=== PATIENT | female | born 1950 | race Hispanic/Latino ===

== ENCOUNTER 2019-05-02 10:29 | Inpatient (IN) | payer BC, MEDICARE ==
[2019-05-02 11:24] LABS: Hematocrit 34.6 % (30.3-42.9); Hemoglobin 12.3 gm/dl (10.1-14.3); Mean Corpuscular HGB Conc 36 % (30-34); Mean Corpuscular Volume 88 fl (79-97); Platelet Count 180 K/mm3 (140-440); Red Blood Count 3.94 M/mm3 (3.65-5.03); Red Cell Distribution Width 13.2 % (13.2-15.2)
--- NOTE | 2019-05-02 11:28 | XRay Report ---
AP CHEST: HISTORY: chest pain AP view of the chest demonstrates a normal mediastinal and cardiac contour with clear lungs and normal bony and soft tissue structures. IMPRESSION: Unremarkable AP chest.
[2019-05-02 11:39] LABS: Alanine Aminotransferase 55 units/L (7-56); Albumin 4.1 g/dL (3.9-5); BUN/Creatinine Ratio 13; Blood Urea Nitrogen 12 mg/dL (7-17); Calcium 8.6 mg/dL (8.4-10.2); Hemolysis Index 9
[2019-05-02 12:35] LABS: Total Cells Counted 100
[2019-05-02 12:36] LABS: BUN/Creatinine Ratio 15; Blood Urea Nitrogen 12 mg/dL (7-17); Calcium 8.5 mg/dL (8.4-10.2); Hemolysis Index 13
[2019-05-02 12:37] LABS: Basophils % (Manual) 0 % (0.0-1.8); Platelet Estimate Consistent w Auto; RBC Morphology Normal
--- NOTE | 2019-05-02 12:51 | Emergency Department Report ---
ED General Adult HPI - General Chief complaint: Chest Pain Stated complaint: ABD/CHEST PAIN Time Seen by Provider: 05/02/19 11:13 Source: EMS Mode of arrival: Stretcher Limitations: No Limitations - History of Present Illness Initial comments: The patient presents to the emergency department with a chief complaint of diarrhea 1 week. Patient states she was seen by her PA yesterday and started on antibiotic for her diarrhea. Patient also complains of chest pain 2 days that she describes as dull in nature without radiation. -: Gradual Location: chest Radiation: non-radiation Improves with: none Worsens with: none Associated Symptoms: denies other symptoms Treatments Prior to Arrival: none - Related Data Home Medications Medication Instructions Recorded Confirmed Last Taken ALPRAZolam [Xanax TAB] 2 mg PO BID PRN 05/02/19 05/02/19 Unknown Clopidogrel [Plavix] 75 mg PO QDAY 05/02/19 05/02/19 Unknown Diphenoxylate/Atropine [Lomotil] 1 tab PO QID PRN 05/02/19 05/02/[address] [DepaKOTE DR] 250 mg PO BID 05/02/19 05/02/19 Unknown Escitalopram Oxalate [Lexapro] 10 mg PO QDAY 05/02/19 05/02/19 Unknown Fenofibric Acid (Choline) 135 mg PO QDAY 05/02/19 05/02/19 Unknown [Fenofibric Acid] Lisinopril/Hydrochlorothiazide 1 tab PO QDAY 05/02/19 05/02/19 Unknown [Zestoretic 20-25 mg] Metoprolol [Lopressor TAB] 50 mg PO BID 05/02/19 05/02/19 Unknown [place]-3 Acid Ethyl Esters [Triklo] 2 cap PO BID 05/02/19 05/02/19 Unknown Ondansetron [Zofran Odt] 4 mg PO Q6HR PRN 05/02/19 05/02/19 Unknown Pravastatin [Pravachol] 40 mg PO QHS 05/02/19 05/02/19 Unknown Silver Sulfadiazine [Ssd] 1 applic TP BID 05/02/19 05/02/19 Unknown Sulfamethoxazole/Trimethoprim 1 each PO BID 05/02/19 05/02/19 Unknown [Bactrim DS TAB] Zolpidem [Ambien] 10 mg PO QHS PRN 05/02/19 05/02/19 Unknown traMADol [Ultram] 50 mg PO Q6HR PRN 05/02/19 05/02/19 Unknown Allergies Allergy/AdvReac Type Severity Reaction Status Date / Time No Known Allergies Allergy Verified 10/20/15 00:26 ED Review of Systems ROS: Stated complaint: ABD/CHEST PAIN Other details as noted in HPI Comment: All other systems reviewed and negative (history of) Constitutional: denies: chills, fever Eyes: denies: eye pain, eye discharge, vision change ENT: denies: ear pain, throat pain Respiratory: denies: cough, shortness of breath, wheezing Cardiovascular: chest pain. denies: palpitations Endocrine: no symptoms reported Gastrointestinal: denies: abdominal pain, nausea, diarrhea Genitourinary: denies: urgency, dysuria, discharge Musculoskeletal: denies: back pain, joint swelling, arthralgia Skin: denies: rash, lesions Neurological: denies: headache, weakness, paresthesias Psychiatric: denies: anxiety, depression Hematological/Lymphatic: denies: easy bleeding, easy bruising ED Past Medical Hx - Past Medical History Previous Medical History?: Yes Hx Hypertension: Yes Hx Heart Attack/AMI: Yes (5 stents) Hx Psychiatric Treatment: Yes (Depression, Anxiety) Additional medical history: CAD - Surgical History Past Surgical History?: Yes Hx Coronary Stent: Yes (5 stents) - Social History Smoking Status: Former Smoker Substance Use Type: Alcohol - Medications Home Medications: Home Medications Medication Instructions Recorded Confirmed Last Taken Type ALPRAZolam [Xanax TAB] 2 mg PO BID PRN 05/02/19 05/02/19 Unknown History Clopidogrel [Plavix] 75 mg PO QDAY 05/02/19 05/02/19 Unknown History Diphenoxylate/Atropine [Lomotil] 1 tab PO QID PRN 05/02/19 05/02/19 Unknown History Divalproex [Luciano MADISON] 250 mg PO BID 05/02/19 05/02/19 Unknown History Escitalopram Oxalate [Lexapro] 10 mg PO QDAY 05/02/19 05/02/19 Unknown History Fenofibric Acid (Choline) 135 mg PO QDAY 05/02/19 05/02/19 Unknown History [Fenofibric Acid] Lisinopril/Hydrochlorothiazide 1 tab PO QDAY 05/02/19 05/02/19 Unknown History [Zestoretic 20-25 mg] Metoprolol [Lopressor TAB] 50 mg PO BID 05/02/19 05/02/19 Unknown History [place]-3 Acid Ethyl Esters [Triklo] 2 cap PO BID 05/02/19 05/02/19 Unknown History Ondansetron [Zofran Odt] 4 mg PO Q6HR PRN 05/02/19 05/02/19 Unknown History Pravastatin [Pravachol] 40 mg PO QHS 05/02/19 05/02/19 Unknown History Silver Sulfadiazine [Ssd] 1 applic TP BID 05/02/19 05/02/19 Unknown History Sulfamethoxazole/Trimethoprim 1 each PO BID 05/02/19 05/02/19 Unknown History [Bactrim DS TAB] Zolpidem [Ambien] 10 mg PO QHS PRN 05/02/19 05/02/19 Unknown History traMADol [Ultram] 50 mg PO Q6HR PRN 05/02/19 05/02/19 Unknown History ED Physical Exam - General Limitations: No Limitations General appearance: alert, in no apparent distress - Head Head exam: Present: atraumatic, normocephalic - Eye Eye exam: Present: normal appearance, PERRL, EOMI - ENT ENT exam: Present: mucous membranes dry - Neck Neck exam: Present: normal inspection - Respiratory Respiratory exam: Present: normal lung sounds bilaterally. Absent: respiratory distress, wheezes, rales - Cardiovascular Cardiovascular Exam: Present: regular rate, normal rhythm. Absent: systolic murmur, diastolic murmur, rubs, gallop - GI/Abdominal GI/Abdominal exam: Present: soft, normal bowel sounds. Absent: distended, tenderness - Extremities Exam Extremities exam: Present: normal inspection - Back Exam Back exam: Present: normal inspection - Neurological Exam Neurological exam: Present: alert, oriented X3, CN II-XII intact. Absent: motor sensory deficit - Psychiatric Psychiatric exam: Present: normal affect, normal mood - Skin Skin exam: Present: warm, dry, intact, normal color. Absent: rash ED Course Vital Signs 05/02/19 05/02/19 05/02/19 10:49 11:00 11:16 Pulse Rate 71 64 69 Respiratory 12 16 12 Rate Blood Pressure 115/64 115/64 123/69 O2 Sat by Pulse 97 99 Oximetry 05/02/19 05/02/19 05/02/19 11:30 11:45 12:00 Pulse Rate 64 65 66 Respiratory 19 16 16 Rate Blood Pressure 118/65 124/70 130/78 O2 Sat by Pulse 100 100 100 Oximetry 05/02/19 05/02/19 05/02/19 12:15 12:30 12:45 Pulse Rate 65 63 75 Respiratory 10 L 12 14 Rate Blood Pressure 136/75 142/80 142/80 O2 Sat by Pulse 100 100 100 Oximetry 05/02/19 05/02/19 05/02/19 13:00 13:15 13:30 Pulse Rate 64 65 66 Respiratory 15 16 12 Rate Blood Pressure 154/77 150/79 135/74 O2 Sat by Pulse 100 100 100 Oximetry 05/02/19 05/02/19 05/02/19 13:45 14:00 14:15 Pulse Rate 72 70 71 Respiratory 18 12 13 Rate Blood Pressure 135/74 146/77 147/71 O2 Sat by Pulse 100 100 100 Oximetry 05/02/19 05/02/19 05/02/19 14:30 14:45 15:01 Pulse Rate 68 60 65 Respiratory 14 11 L 16 Rate Blood Pressure 145/80 133/82 127/72 O2 Sat by Pulse 100 100 100 Oximetry 05/02/19 05/02/19 05/02/19 15:15 15:30 15:53 Pulse Rate 62 69 69 Respiratory 13 15 Rate Blood Pressure 127/72 120/78 120/78 O2 Sat by Pulse 100 100 Oximetry 05/02/19 05/02/19 05/02/19 16:01 16:15 16:30 Pulse Rate 70 85 69 Respiratory 14 13 15 Rate Blood Pressure 120/78 120/78 113/68 O2 Sat by Pulse 100 100 100 Oximetry 05/02/19 05/02/19 05/02/19 16:45 17:00 17:15 Pulse Rate 67 71 72 Respiratory 13 13 13 Rate Blood Pressure 120/78 124/67 124/67 O2 Sat by Pulse 100 100 100 Oximetry 05/02/19 05/02/19 05/02/19 17:30 17:45 18:00 Pulse Rate 72 75 74 Respiratory 15 17 10 L Rate Blood Pressure 147/78 143/77 143/77 O2 Sat by Pulse 100 100 100 Oximetry ED Medical Decision Making - Lab Data Result diagrams: 05/02/19 11:03 05/02/19 12:13 Lab Results 05/02/19 05/02/19 05/02/19 Range/Units 11:03 11:03 12:13 WBC 2.7 L (4.5-11.0) K/mm3 RBC 3.94 (3.65-5.03) M/mm3 Hgb 12.3 (10.1-14.3) gm/dl Hct 34.6 (30.3-42.9) % MCV 88 (79-97) fl MCH 31 (28-32) pg MCHC 36 H (30-34) % RDW 13.2 (13.2-15.2) % Plt Count 180 (140-440) K/mm3 Hart % (Auto) Dinkey Driver Add Manual Diff Complete Total Counted 100 Seg Neuts % (Manual) 49.0 (40.0-70.0) % Band Neutrophils % 0 % Lymphocytes % (Manual) 42.0 H (13.4-35.0) % Reactive Lymphs % (Man) 0 % Monocytes % (Manual) 7.0 (0.0-7.3) % Eosinophils % (Manual) 1.0 (0.0-4.3) % Basophils % (Manual) 0 (0.0-1.8) % Metamyelocytes % 0 % Myelocytes % 1.0 % Promyelocytes % 0 % Blast Cells % 0 % Nucleated RBC % Not Reportable Seg Neutrophils # Man 1.3 L (1.8-7.7) K/mm3 Band Neutrophils # 0.0 K/mm3 Lymphocytes # (Manual) 1.1 L (1.2-5.4) K/mm3 Abs React Lymphs (Man) 0.0 K/mm3 Monocytes # (Manual) 0.2 (0.0-0.8) K/mm3 Eosinophils # (Manual) 0.0 (0.0-0.4) K/mm3 Basophils # (Manual) 0.0 (0.0-0.1) K/mm3 Metamyelocytes # 0.0 K/mm3 Myelocytes # 0.0 K/mm3 Promyelocytes # 0.0 K/mm3 Blast Cells # 0.0 K/mm3 WBC Morphology Not Reportable Hypersegmented Neuts Not Reportable Hyposegmented Neuts Not Reportable Hypogranular Neuts Not Reportable Smudge Cells Not Reportable Toxic Granulation Not Reportable Toxic Vacuolation Not Reportable Dohle Bodies Not Reportable Pelger-Huet Anomaly Not Reportable Александр Rods Not Reportable Platelet Estimate Consistent w auto Clumped Platelets Not Reportable Plt Clumps, EDTA Not Reportable Large Platelets Not Reportable Giant Platelets Not Reportable Platelet Satelliting Not Reportable Plt Morphology Comment Not Reportable RBC Morphology Normal Dimorphic RBCs Not Reportable Polychromasia Not Reportable Hypochromasia Not Reportable Poikilocytosis Not Reportable Anisocytosis Not Reportable Microcytosis Not Reportable Macrocytosis Not Reportable Spherocytes Not Reportable Pappenheimer Bodies Not Reportable Sickle Cells Not Reportable Target Cells Not Reportable Tear Drop Cells Not Reportable Ovalocytes Not Reportable Helmet Cells Not Reportable [place] Bodies Not Reportable Vallecitos Rings Not Reportable [place] Cells Not Reportable Bite Cells Not Reportable Crenated Cell Not Reportable Elliptocytes Not Reportable Acanthocytes (Spur) Not Reportable Rouleaux Not Reportable Hemoglobin C Crystals Not Reportable Schistocytes Not Reportable Malaria parasites Not Reportable Álvaro Bodies Not Reportable Hem Pathologist Commnt No Sodium 110 L* 108 L* (137-145) mmol/L Potassium 3.5 L 3.5 L (3.6-5.0) mmol/L Chloride 74.4 L 74.3 L (98-107) mmol/L Carbon Dioxide 20 L 19 L (22-30) mmol/L Anion Gap 19 18 mmol/L BUN 12 12 (7-17) mg/dL Creatinine 0.9 0.8 (0.7-1.2) mg/dL Estimated GFR > 60 > 60 ml/min BUN/Creatinine Ratio 13 15 % Glucose 125 H 113 H (65-100) mg/dL Calcium 8.6 8.5 (8.4-10.2) mg/dL Total Bilirubin 1.00 (0.1-1.2) mg/dL AST 98 H (5-40) units/L ALT 55 (7-56) units/L Alkaline Phosphatase 68 (35-129) units/L NT-Pro-B Natriuret Pep 1396 H (0-900) pg/mL Total Protein 7.6 (6.3-8.2) g/dL Albumin 4.1 (3.9-5) g/dL Albumin/Globulin Ratio 1.2 % Lipase 111 H (13-60) units/L - EKG Data -: EKG Interpreted by Me EKG shows normal: sinus rhythm (paced) Rate: normal - Radiology Data Radiology results: report reviewed - Medical Decision Making Results discussed with patient Critical Care Time: Yes Critical care time in (mins) excluding proc time.: 35 Critical care attestation.: If time is entered above; I have spent that time in minutes in the direct care of this critically ill patient, excluding procedure time. ED Disposition Clinical Impression: Hyponatremia Disposition: [id number] OP ADMIT IP TO THIS HOSP Is pt being admited?: Yes Does the pt Need Aspirin: Yes Condition: Fair
[2019-05-02] MEDS ORDERED: XANAX PO ONE (12:55)
[2019-05-02] MEDS ORDERED: BABY ASPIRIN PO ONE (13:19)
--- NOTE | 2019-05-02 13:19 | History and Physical Report ---
History of Present Illness Chief complaint: I feel sick, I keep dry heaving, History of present illness: 68 YO Female with HTN, CAD S/P Stent Placement, Anxiety, Depression presents to ED for evaluation. Pt states that she has experienced diarrhea over the past week, multiple episodes of nausea with dry heaves. Pt reports abdominal and chest discomfort associated with recurrent dry heaves. Pt roommate is at bedside and reports that patient is confused compared to her normal state. EMS notified and upon arrival the patient was found to be in distress and transported to [facility]. Pt seen and evaluated in ED and found to have Severe Hyponnatremia with serum sodium of 108 complicated by encephalopathy, as well as Right breast cellulitis. Pt admitted to IM and initiated on 3% Saline. Pt treated with 50cc hypertonic saline with repeat serum sodium as well as IV antibiotic therapy and wound care consult. Nephrology consulted in ED. No reports of fever, chills, CP, Palpitations,Trauma, BRBPR, syncope, vertigo, bowel/bladder incontinence, productive cough or recent ill contacts. No prior admission for review. All listed medication reconciled at time of admission. Past History Past Medical History: CAD, hypertension Past Surgical History: Other (Stent placement, ) Social history: Family history: no significant family history (reviewed) Medications and Allergies Allergies Allergy/AdvReac Type Severity Reaction Status Date / Time No Known Allergies Allergy Verified 10/20/15 00:26 Home Medications Medication Instructions Recorded Confirmed Last Taken Type ALPRAZolam [Xanax TAB] 2 mg PO BID PRN 05/02/19 05/02/19 Unknown History Clopidogrel [Plavix] 75 mg PO QDAY 05/02/19 05/02/19 Unknown History Diphenoxylate/Atropine [Lomotil] 1 tab PO QID PRN 05/02/19 05/02/[address] [DepJohnTE DR] 250 mg PO BID 05/02/19 05/02/19 Unknown History Escitalopram Oxalate [Lexapro] 10 mg PO QDAY 05/02/19 05/02/19 Unknown History Fenofibric Acid (Choline) 135 mg PO QDAY 05/02/19 05/02/19 Unknown History [Fenofibric Acid] Lisinopril/Hydrochlorothiazide 1 tab PO QDAY 05/02/19 05/02/19 Unknown History [Zestoretic 20-25 mg] Metoprolol [Lopressor TAB] 50 mg PO BID 05/02/19 05/02/19 Unknown History [place]-3 Acid Ethyl Esters [Triklo] 2 cap PO BID 05/02/19 05/02/19 Unknown History Ondansetron [Zofran Odt] 4 mg PO Q6HR PRN 05/02/19 05/02/19 Unknown History Pravastatin [Pravachol] 40 mg PO QHS 05/02/19 05/02/19 Unknown History Silver Sulfadiazine [Ssd] 1 applic TP BID 05/02/19 05/02/19 Unknown History Sulfamethoxazole/Trimethoprim 1 each PO BID 05/02/19 05/02/19 Unknown History [Bactrim DS TAB] Zolpidem [Ambien] 10 mg PO QHS PRN 05/02/19 05/02/19 Unknown History traMADol [Ultram] 50 mg PO Q6HR PRN 05/02/19 05/02/19 Unknown History Active Meds: Active Medications Aspirin (Baby Aspirin) 324 mg PO ONCE ONE Stop: 05/02/19 13:20 Review of Systems Constitutional: no weight loss, no weight gain, no fever, no chills Ears, nose, mouth and throat: no ear pain, no ear discharge, no tinnitis, no decreased hearing, no nose pain, no nasal congestion Breasts: no change in shape, no swelling, no mass Cardiovascular: no chest pain, no orthopnea, no palpitations, no rapid/irregular heart beat, no edema Respiratory: no cough, no cough with sputum, no excessive sputum, no hemoptysis Gastrointestinal: abdominal pain, nausea Genitourinary Female: no pelvic pain, no flank pain, no menorrhagia, no dysuria Rectal: no pain, no incontinence, no bleeding Musculoskeletal: no neck stiffness, no neck pain, no shooting arm pain, no arm numbness/tingling Integumentary: no rash, no pruritis, no redness, no sores, no wounds Neurological: no paralysis, no weakness, no parathesias, no numbness, no tingling Psychiatric: no anxiety, no memory loss, no change in sleep habits, no sleep disturbances, no insomnia Endocrine: no cold intolerance, no heat intolerance, no polyphagia, no excessive thirst, no polydipsia, no polyuria Hematologic/Lymphatic: no easy bruising, no easy bleeding Allergic/Immunologic: no urticaria, no allergic rhinitis, no wheezing, no persistent infections, no anaphylaxis Exam - Constitutional Vitals: Temp Pulse Resp BP Pulse Ox 71 12 115/64 97 05/02/19 10:49 05/02/19 10:49 05/02/19 10:49 05/02/19 11:16 General appearance: Present: mild distress - EENT Eyes: Present: PERRL ENT: hearing intact, clear oral mucosa - Neck Neck: Present: supple, normal ROM - Respiratory Respiratory effort: normal Respiratory: bilateral: CTA - Cardiovascular Heart Sounds: Present: S1 & S2. Absent: rub, click - Extremities Extremities: pulses symmetrical, No edema Peripheral Pulses: within normal limits - Abdominal General gastrointestinal: Present: soft, non-tender, non-distended, normal bowel sounds Female genitourinary: Present: normal - Integumentary Integumentary: Present: clear, warm, dry - Musculoskeletal Musculoskeletal: generalized weakness - Psychiatric Psychiatric: appropriate mood/affect, no intact judgment & insight, no memory intact - Neurologic Neurologic: CNII-XII intact, moves all extremities Results - Labs CBC & Chem 7: 05/02/19 11:03 05/02/19 12:13 Labs: Abnormal lab results 05/02/19 05/02/19 05/02/19 Range/Units 11:03 11:03 12:13 WBC 2.7 L (4.5-11.0) K/mm3 MCHC 36 H (30-34) % Lymphocytes % (Manual) 42.0 H (13.4-35.0) % Seg Neutrophils # Man 1.3 L (1.8-7.7) K/mm3 Lymphocytes # (Manual) 1.1 L (1.2-5.4) K/mm3 Sodium 110 L* 108 L* (137-145) mmol/L Potassium 3.5 L 3.5 L (3.6-5.0) mmol/L Chloride 74.4 L 74.3 L (98-107) mmol/L Carbon Dioxide 20 L 19 L (22-30) mmol/L Glucose 125 H 113 H (65-100) mg/dL AST 98 H (5-40) units/L NT-Pro-B Natriuret Pep 1396 H (0-900) pg/mL Lipase 111 H (13-60) units/L Assessment and Plan - Patient Problems (1) Hyponatremia Current Visit: Yes Status: Acute Plan to address problem: Severe Hyponatremia: 50cc Hypertonic saline, repeat bmp, nephrology consulted in ED, Admit to IMCU (2) Encephalopathy Current Visit: Yes Status: Acute Plan to address problem: CT head, neuro checks, seizure precautions, fall precautions, (3) Acidosis Current Visit: Yes Status: Acute Plan to address problem: IVF resuscitation therapy, repeat bmp in am (4) Cellulitis of right breast Current Visit: Yes Status: Acute Plan to address problem: Iv antibiotic therapy, wound care consulted, (5) Nausea Current Visit: Yes Status: Acute Plan to address problem: Anti emetic therapy, IVF resusciatation, (6) DVT prophylaxis Current Visit: Yes Status: Acute Plan to address problem: SCD to BLE while in bed,
[2019-05-02] MEDS ORDERED: ZOFRAN IV ONE (13:23)
[2019-05-02] MEDS ORDERED: LOMOTIL PO PRN (13:27)
[2019-05-02] MEDS ORDERED: NON-FORMULARY (Alprazolam [Xanax Tab] 2 MG) PO PRN (13:27)
[2019-05-02] MEDS ORDERED: ZOFRAN ODT PO PRN (13:27)
[2019-05-02] MEDS ORDERED: PROVENTIL IH PRN (13:52)
[2019-05-02] MEDS ORDERED: SODIUM CHLORIDE FLUSH SYRINGE 10 ML IV PRN (13:52)
[2019-05-02] MEDS ORDERED: ATIVAN IV PRN (13:55)
[2019-05-02] MEDS ORDERED: NACL 0.9% 1000 ML 1,000 ML IV SCH (14:00)
[2019-05-02] MEDS ORDERED: VANCOMYCIN/NS 1 GM/250 ML 1 GM/250 ML BAG IV ONE (14:19)
[2019-05-02] MEDS ORDERED: NACL 3% IV ONE (14:45)
[2019-05-02] MEDS ORDERED: VANCOMYCIN PHARMACY TO DOSE IV SCH (15:00)
[2019-05-02] MEDS: VANCOMYCIN 1,250 MG in NACL 0.9% 250ML 250 ML IV SCH (16:20)
--- NOTE | 2019-05-02 16:37 | Cat Scan Report ---
PROCEDURE: CT HEAD/BRAIN WO CON TECHNIQUE: Computerized tomography of the head was performed without contrast material. CT DOSE LENGTH PRODUCT: 920.5 mGycm HISTORY: confusion COMPARISONS: None . FINDINGS: Brain: There is no evidence of intracranial hemorrhage. No parenchymal hemorrhage is seen. No mass lesions or mass effect is identified. No abnormal extra-axial fluid collections or masses are seen. There is some decreased density seen in the periventricular white matter without mass effect. This i s fairly symmetric and does not exhibit any mass effect consistent with gliosis probably on the basis of microvascular disease or white matter changes of aging. Ventricles: The ventricles, sulcal pattern and fissures are prominent consistent with atrophy. Bone Windows: No evidence of fracture. Paranasal sinuses: Clear. Mastoid air cells: Clear. IMPRESSION: There is evidence of mild atrophy and gliosis. No acute intracranial abnormalities are identified. . This document is electronically signed by Everardo Roman MD., May 02 2019 04:35:17 PM ET
[2019-05-02 17:43] LABS: Bilirubin,Urine NEG (Negative); Blood,Urine NEG (Negative); Color,Urine Yellow (Yellow); Mucus,Urine FEW /HPF; Protein,Urine <15 mg/dL mg/dL (Negative); Urobilinogen,Urine < 2.0 mg/dL (<2.0)
[2019-05-02 17:44] LABS: WBC,Urine < 1.0 /HPF (0.0-6.0)
[2019-05-02 17:58] LABS: Osmolality,Urine 331 Mosm/kg
[2019-05-02] MEDS ORDERED: K-DUR PO ONE (18:19)
[2019-05-02] MEDS: XANAX PO PRN (18:34)
[2019-05-02 19:36] LABS: BUN/Creatinine Ratio 16; Blood Urea Nitrogen 11 mg/dL (7-17); Calcium 8.6 mg/dL (8.4-10.2); Hemolysis Index 41
--- NOTE | 2019-05-02 19:39 | Consultation ---
History of Present Illness - Reason for Consult Consult date: 05/02/19 hyponatremia - History of Present Illness The patient is a 68 YO female with history significant for HTN, CAD S/P Stent Placement, Anxiety and Depression who presented to [facility] ED with one week h/o diarrhea. She had several episodes of watery diarrhea and associated with nausea, dry heaves and abd discomfort. She also reports having R breast ulcer. Pt roommate at bedside reports that patient is confused compared to her normal state. Patient denies fever, chills, CP, dizziness, syncope, vertigo, bowel/bladder incontinence, cough, sob, leg swelling or recent ill contacts. Her medlist includes HCTZ. Pt was seen and evaluated in ED and found to have Severe Hyponnatremia with serum sodium of 108, Encephalopathy and Right breast cellulitis. She was started on 3% Saline in the ER. Nephrology was consulted for further evaluation. Past History Past Medical History: CAD, hypertension, hyperlipidemia, other (Anxiety, Depression) Past Surgical History: Other (Stent placement, ) Social history: Family history: no significant family history (reviewed) Medications and Allergies Allergies Allergy/AdvReac Type Severity Reaction Status Date / Time No Known Allergies Allergy Verified 10/20/15 00:26 Home Medications Medication Instructions Recorded Confirmed Last Taken Type ALPRAZolam [Xanax TAB] 2 mg PO BID PRN 05/02/19 05/02/19 Unknown History Clopidogrel [Plavix] 75 mg PO QDAY 05/02/19 05/02/19 Unknown History Diphenoxylate/Atropine [Lomotil] 1 tab PO QID PRN 05/02/19 05/02/19 Unknown History Divalproex [Luciano MADISON] 250 mg PO BID 05/02/19 05/02/19 Unknown History Escitalopram Oxalate [Lexapro] 10 mg PO QDAY 05/02/19 05/02/19 Unknown History Fenofibric Acid (Choline) 135 mg PO QDAY 05/02/19 05/02/19 Unknown History [Fenofibric Acid] Lisinopril/Hydrochlorothiazide 1 tab PO QDAY 05/02/19 05/02/19 Unknown History [Zestoretic 20-25 mg] Metoprolol [Lopressor TAB] 50 mg PO BID 05/02/19 05/02/19 Unknown History [place]-3 Acid Ethyl Esters [Triklo] 2 cap PO BID 05/02/19 05/02/19 Unknown History Ondansetron [Zofran Odt] 4 mg PO Q6HR PRN 05/02/19 05/02/19 Unknown History Pravastatin [Pravachol] 40 mg PO QHS 05/02/19 05/02/19 Unknown History Silver Sulfadiazine [Ssd] 1 applic TP BID 05/02/19 05/02/19 Unknown History Sulfamethoxazole/Trimethoprim 1 each PO BID 05/02/19 05/02/19 Unknown History [Bactrim DS TAB] Zolpidem [Ambien] 10 mg PO QHS PRN 05/02/19 05/02/19 Unknown History traMADol [Ultram] 50 mg PO Q6HR PRN 05/02/19 05/02/19 Unknown History Active Meds: Active Medications Albuterol (Proventil) 2.5 mg IH Q3HRT PRN PRN Reason: Shortness Of Breath Alprazolam (Xanax) 2 mg PO BID PRN PRN Reason: Anxiety Last Admin: 05/02/19 18:34 Dose: 2 mg Documented by: Clopidogrel Bisulfate (Plavix) 75 mg PO QDAY [facility] Diphenoxylate HCl/Atropine (Lomotil) 1 tab PO QID PRN PRN Reason: Diarrhea Divalproex Sodium (Depakote Dr) 250 mg PO BID [facility] Escitalopram Oxalate (Lexapro) 10 mg PO QDAY [facility] Fenofibrate (Tricor) 145 mg PO DAILY [facility] Fish Oil (Fish Oil) 2,000 mg PO BID [facility] Sodium Chloride (Nacl 0.9% 1000 Ml) 1,000 mls @ 100 mls/hr IV DIRECT [facility] Last Admin: 05/02/19 14:20 Dose: 100 mls/hr Documented by: Vancomycin HCl 1,250 mg/ (Sodium Chloride) 275 mls @ 137.5 mls/hr IV Q18H [facility] Last Admin: 05/02/19 16:20 Dose: 137.5 mls/hr Documented by: Lisinopril (Zestril) 20 mg PO QDAY [facility] Lorazepam (Ativan) 1 mg IV Q6H PRN PRN Reason: Agitation Last Admin: 05/02/19 14:20 Dose: 1 mg Documented by: Metoprolol Tartrate (Lopressor) 50 mg PO BID [facility] Ondansetron HCl (Zofran Odt) 4 mg PO Q6HR PRN PRN Reason: Nausea Pravastatin Sodium (Pravachol) 40 mg PO QHS [facility] Silver Sulfadiazine (Thermazene 50 Gram) 1 applic TP BID [facility] Sodium Chloride (Sodium Chloride Flush Syringe 10 Ml) 10 ml IV BID [facility] Sodium Chloride (Sodium Chloride Flush Syringe 10 Ml) 10 ml IV PRN PRN PRN Reason: LINE FLUSH Tramadol HCl (Ultram) 50 mg PO Q6HR PRN PRN Reason: Pain Zolpidem Tartrate (Ambien) 10 mg PO QHS PRN PRN Reason: Sleep Review of Systems Constitutional: anorexia, fatigue, weakness, poor appetite, no weight loss, no weight gain, no fever, no chills Breasts: pain, other (ulcer) Cardiovascular: high blood pressure, no chest pain, no orthopnea, no edema, no syncope, no lightheadedness, no shortness of breath, no leg edema Respiratory: no cough, no hemoptysis, no shortness of breath Gastrointestinal: abdominal pain, nausea, vomiting, diarrhea, no constipation, no melena, no hematochezia, no jaundice Genitourinary Female: no dysuria, no urinary frequency, no hematuria Rectal: no bleeding Musculoskeletal: muscle weakness, no muscle cramps, no gait dysfunction Integumentary: wounds (R breast) Neurological: change in mentation, confusion, no numbness, no seizures, no syncope, no convulsions, no aphasia Psychiatric: anxiety, depression, confusion Exam - Vital Signs Vital signs: Vital Signs Pulse Resp BP Pulse Ox 71 12 115/64 97 05/02/19 10:49 05/02/19 10:49 05/02/19 10:49 05/02/19 10:49 - General Appearance General appearance: well-developed, appears stated age, other (room mate at the bedside, no distress) EENT: ATNC, PERRL, mucous membranes dry, hearing intact, vision intact Neck: Present: neck supple, trachea midline Respiratory: Clear to Ascultation Heart: regular, S1S2, no murmurs Gastrointestinal: Present: normoactive bowel sounds. Absent: tenderness, distended Integumentary: ulcer (R breast) Neurologic: no focal deficit, no asterixis, alert and oriented x3 Musculoskeletal: Present: other (no edema) Psychiatric: cooperative Results - Lab Results 05/02/19 11:03 05/02/19 18:19 Most recent lab results Calcium 8.5 mg/dL (8.4-10.2) 05/02/19 12:13 58 mmol/L 05/02/19 Unknown Assessment and Plan 1. Hyponatremia: Likely from combination of HCTZ and volume depletion. Started on 0.9% saline. Will stop 3% saline after 50 ml. Follow Sodium level closely for gradual improvement. 2. FEN: Volume depletion, continue IV fluids. Hypokalemia, replete K. Metabolic acidosis, monitor. Replete Mg. Monitor lytes. 3. Gastroenteritis. 4. Encephalopathy.
[2019-05-02] MEDS ORDERED: MAGNESIUM SULFATE 2GM/50ML 2 GM/50 ML BAG IV ONE (20:06)
[2019-05-02] MEDS ORDERED: OMEGA ACID ETHYL ESTERS PO SCH (22:00)
[2019-05-02] MEDS: FISH OIL PO SCH (22:18)
[2019-05-02] MEDS: SODIUM CHLORIDE FLUSH SYRINGE 10 ML IV SCH (22:19)
[2019-05-02] MEDS: PRAVACHOL PO SCH (22:19)
[2019-05-02] MEDS: ULTRAM PO PRN (22:24)
[2019-05-02] MEDS: THERMAZENE 50 GRAM TP SCH (22:26)
[2019-05-02] MEDS: LOPRESSOR PO SCH (22:48)
[2019-05-02] MEDS ORDERED: NACL 0.45% 1000 ML 1,000 ML IV SCH (23:45)
[2019-05-03 05:42] LABS: BUN/Creatinine Ratio 17; Blood Urea Nitrogen 10 mg/dL (7-17); Calcium 8.5 mg/dL (8.4-10.2); Hemolysis Index 46
--- NOTE | 2019-05-03 08:41 | Progress Note ---
Assessment and Plan 1. Hyponatremia: Likely from combination of HCTZ and volume depletion. Currently she is on 0.45% saline. Increase in the Sodium level is likely from auto-correction. Change IV fluids to D5W. Follow Sodium level closely for gradual improvement. 2. FEN: Volume depletion, continue IV fluids. Hypokalemia, improved. Metabolic acidosis, monitor. Monitor lytes. 3. Gastroenteritis. 4. Encephalopathy. Subjective Date of service: 05/03/19 Interval history: Patient was seen and examined at the bedside. Feeling better. Objective - Vital Signs Vital signs: Vital Signs - 12hr 05/02/19 05/02/19 05/02/19 22:00 22:48 23:51 Temperature Pulse Rate 83 74 76 Respiratory 18 Rate Blood Pressure 97/61 126/83 O2 Sat by Pulse 98 Oximetry 05/03/19 05/03/19 05/03/19 00:00 00:11 00:21 Temperature 98.8 F Pulse Rate 82 79 71 Respiratory 18 18 18 Rate Blood Pressure 97/61 97/61 97/61 O2 Sat by Pulse 98 98 97 Oximetry 05/03/19 05/03/19 05/03/19 00:31 00:41 00:51 Temperature Pulse Rate 73 74 75 Respiratory 17 16 19 Rate Blood Pressure 97/61 97/61 97/61 O2 Sat by Pulse 97 97 97 Oximetry 05/03/19 05/03/19 05/03/19 01:00 01:11 01:20 Temperature Pulse Rate 66 68 65 Respiratory 15 14 13 Rate Blood Pressure 82/46 87/48 87/48 O2 Sat by Pulse 97 96 98 Oximetry 05/03/19 05/03/19 05/03/19 01:31 01:41 01:51 Temperature Pulse Rate 65 65 63 Respiratory 16 16 14 Rate Blood Pressure 82/46 82/46 87/48 O2 Sat by Pulse 100 99 99 Oximetry 05/03/19 05/03/19 05/03/19 02:00 02:11 02:21 Temperature Pulse Rate 62 64 64 Respiratory 15 18 18 Rate Blood Pressure 94/53 94/53 94/53 O2 Sat by Pulse 99 99 99 Oximetry 05/03/19 05/03/19 05/03/19 02:31 02:41 02:51 Temperature Pulse Rate 61 63 69 Respiratory 15 15 17 Rate Blood Pressure 94/53 94/53 94/53 O2 Sat by Pulse 99 100 100 Oximetry 05/03/19 05/03/19 05/03/19 03:00 03:11 03:21 Temperature Pulse Rate 63 64 72 Respiratory 14 15 17 Rate Blood Pressure 106/58 106/58 106/58 O2 Sat by Pulse 100 100 99 Oximetry 05/03/19 05/03/19 05/03/19 03:31 03:41 03:51 Temperature Pulse Rate 68 62 62 Respiratory 18 15 16 Rate Blood Pressure 106/58 106/58 106/58 O2 Sat by Pulse 97 99 100 Oximetry 05/03/19 05/03/19 05/03/19 04:00 04:11 04:21 Temperature 98.7 F Pulse Rate 65 65 66 Respiratory 15 13 15 Rate Blood Pressure 115/61 115/61 115/61 O2 Sat by Pulse 100 100 100 Oximetry 05/03/19 05/03/19 05/03/19 04:31 04:41 04:51 Temperature Pulse Rate 68 67 68 Respiratory 16 16 16 Rate Blood Pressure 115/61 115/61 115/61 O2 Sat by Pulse 100 100 100 Oximetry 05/03/19 05/03/19 05/03/19 05:01 05:11 05:21 Temperature Pulse Rate 66 78 66 Respiratory 17 11 L 15 Rate Blood Pressure 127/62 127/62 127/62 O2 Sat by Pulse 100 100 100 Oximetry 05/03/19 05/03/19 05/03/19 05:31 05:41 05:51 Temperature Pulse Rate 67 68 67 Respiratory 16 15 17 Rate Blood Pressure 127/62 127/62 127/62 O2 Sat by Pulse 100 100 100 Oximetry 05/03/19 05/03/19 05/03/19 06:01 06:11 06:21 Temperature Pulse Rate 69 68 Respiratory 17 17 Rate Blood Pressure 147/87 147/87 147/87 O2 Sat by Pulse 100 100 100 Oximetry 05/03/19 05/03/19 05/03/19 06:31 06:41 06:51 Temperature Pulse Rate 71 70 68 Respiratory 14 17 17 Rate Blood Pressure 147/87 147/87 147/87 O2 Sat by Pulse 100 100 100 Oximetry 05/03/19 05/03/19 05/03/19 07:00 07:11 07:21 Temperature Pulse Rate 67 67 71 Respiratory 17 16 15 Rate Blood Pressure 114/59 114/59 114/59 O2 Sat by Pulse 100 100 100 Oximetry 05/03/19 05/03/19 05/03/19 07:31 07:41 07:51 Temperature Pulse Rate 64 63 62 Respiratory 17 16 17 Rate Blood Pressure 114/59 114/59 114/59 O2 Sat by Pulse 100 100 100 Oximetry 05/03/19 08:00 Temperature 98.7 F Pulse Rate 66 Respiratory 19 Rate Blood Pressure 133/61 O2 Sat by Pulse 100 Oximetry - General Appearance General appearance: well-developed, well-nourished, appears stated age, other (no distress) EENT: ATNC, PERRL, mucous membranes dry, hearing intact, vision intact Neck: supple Respiratory: Present: Clear to Ascultation Cardiology: regular, S1S2, no murmurs Gastrointestinal: normoactive bowel sounds, no tenderness, no distended Neurologic: no focal deficit, no asterixis, alert and oriented x3 Musculoskeletal: other (no edema) - Lab 05/02/19 11:03 05/03/19 05:03 Most recent lab results Calcium 8.5 mg/dL (8.4-10.2) 05/03/19 05:03 Phosphorus 2.70 mg/dL (2.5-4.5) 05/02/19 18:19 Magnesium 1.60 mg/dL (1.7-2.3) L 05/02/19 18:19 58 mmol/L 05/02/19 Unknown Medications & Allergies - Medications Allergies/Adverse Reactions: Allergies No Known Allergies Allergy (Verified 10/20/15 00:26) Home Medications: Home Medications Medication Instructions Recorded Confirmed Last Taken Type ALPRAZolam [Xanax TAB] 2 mg PO BID PRN 05/02/19 05/02/19 Unknown History Clopidogrel [Plavix] 75 mg PO QDAY 05/02/19 05/02/19 Unknown History Diphenoxylate/Atropine [Lomotil] 1 tab PO QID PRN 05/02/19 05/02/19 Unknown History Divalproex [Luciano MADISON] 250 mg PO BID 05/02/19 05/02/19 Unknown History Escitalopram Oxalate [Lexapro] 10 mg PO QDAY 05/02/19 05/02/19 Unknown History Fenofibric Acid (Choline) 135 mg PO QDAY 05/02/19 05/02/19 Unknown History [Fenofibric Acid] Lisinopril/Hydrochlorothiazide 1 tab PO QDAY 05/02/19 05/02/19 Unknown History [Zestoretic 20-25 mg] Metoprolol [Lopressor TAB] 50 mg PO BID 05/02/19 05/02/19 Unknown History [place]-3 Acid Ethyl Esters [Triklo] 2 cap PO BID 05/02/19 05/02/19 Unknown History Ondansetron [Zofran Odt] 4 mg PO Q6HR PRN 05/02/19 05/02/19 Unknown History Pravastatin [Pravachol] 40 mg PO QHS 05/02/19 05/02/19 Unknown History Silver Sulfadiazine [Ssd] 1 applic TP BID 05/02/19 05/02/19 Unknown History Sulfamethoxazole/Trimethoprim 1 each PO BID 05/02/19 05/02/19 Unknown History [Bactrim DS TAB] Zolpidem [Ambien] 10 mg PO QHS PRN 05/02/19 05/02/19 Unknown History traMADol [Ultram] 50 mg PO Q6HR PRN 05/02/19 05/02/19 Unknown History Active Medications: Generic Name Dose Route Start Last Admin Trade Name Freq PRN Reason Stop Dose Admin Albuterol 2.5 mg 05/02/19 13:52 Proventil IH Q3HRT PRN Shortness Of Breath Alprazolam 2 mg 05/02/19 13:46 05/02/19 18:34 Xanax PO 2 mg BID PRN Administration Anxiety Clopidogrel Bisulfate 75 mg 05/03/19 10:00 Plavix PO QDAY [facility] Diphenoxylate HCl/Atropine 1 tab 05/02/19 13:27 Lomotil PO QID PRN Diarrhea Divalproex Sodium 250 mg 05/02/19 22:00 05/03/19 00:[address] PO 250 mg BID [facility] Administration Escitalopram Oxalate 10 mg 05/03/19 10:00 Lexapro PO QDAY [facility] Fenofibrate 145 mg 05/03/19 10:00 Tricor PO DAILY [facility] Fish Oil 2,000 mg 05/02/19 22:00 05/02/19 22:18 Fish Oil PO 2,000 mg BID [facility] Administration Vancomycin HCl 1,250 mg/ 275 mls @ 137.5 mls/hr 05/02/19 16:00 05/02/19 16:20 Sodium Chloride IV 137.5 mls/hr Q18H [facility] Administration Dextrose 1,000 mls @ 100 mls/hr 05/03/19 09:00 D5w IV DIRECT [facility] Lisinopril 20 mg 05/03/19 10:00 Zestril PO QDAY [facility] Lorazepam 1 mg 05/02/19 13:55 05/02/19 14:20 Ativan IV 1 mg Q6H PRN Administration Agitation Metoprolol Tartrate 50 mg 05/02/19 22:00 05/02/19 22:48 Lopressor PO Not Given BID [facility] Ondansetron HCl 4 mg 05/02/19 13:27 Zofran Odt PO Q6HR PRN Nausea Pravastatin Sodium 40 mg 05/02/19 22:00 05/02/19 22:19 Pravachol PO 40 mg QHS [facility] Administration Silver Sulfadiazine 1 applic 05/02/19 22:00 05/02/19 22:26 Thermazene 50 Gram TP 1 applic BID [facility] Administration Sodium Chloride 10 ml 05/02/19 22:00 05/02/19 22:19 Sodium Chloride Flush Syringe 10 Ml IV 10 ml BID [facility] Administration Sodium Chloride 10 ml 05/02/19 13:52 Sodium Chloride Flush Syringe 10 Ml IV PRN PRN LINE FLUSH Tramadol HCl 50 mg 05/02/19 13:27 05/02/19 22:24 Ultram PO 50 mg Q6HR PRN Administration Pain Zolpidem Tartrate 10 mg 05/02/19 13:27 Ambien PO QHS PRN Sleep
[2019-05-03] MEDS ORDERED: D5W 1,000 ML IV SCH (09:00)
[2019-05-03] MEDS: THERMAZENE 50 GRAM TP SCH ×2 (09:03→21:27)
[2019-05-03] MEDS: PLAVIX PO SCH (09:04)
[2019-05-03] MEDS: FISH OIL PO SCH ×2 (09:04→21:17)
[2019-05-03] MEDS: ZESTRIL PO SCH (09:04)
[2019-05-03] MEDS: TRICOR PO SCH (09:04)
[2019-05-03] MEDS: SODIUM CHLORIDE FLUSH SYRINGE 10 ML IV SCH ×2 (09:05→21:26)
[2019-05-03] MEDS: LOPRESSOR PO SCH ×2 (09:05→21:18)
[2019-05-03] MEDS: XANAX PO PRN ×2 (09:09→21:17)
[2019-05-03] MEDS: LEXAPRO PO SCH (09:34)
[2019-05-03] MEDS: VANCOMYCIN 1,250 MG in NACL 0.9% 250ML 250 ML IV SCH (09:35)
[2019-05-03] MEDS ORDERED: FENOFIBRIC ACID 135 MG PO SCH (10:00)
[2019-05-03] MEDS ORDERED: NON-FORMULARY (Lisinopril/Hydrochlorothiazide [Zestoretic 20-25 Mg] 1 TAB) PO SCH (10:00)
[2019-05-03] MEDS ORDERED: HCTZ PO SCH (10:00)
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
[2019-05-03 17:29] LABS: BUN/Creatinine Ratio 13; Blood Urea Nitrogen 9 mg/dL (7-17); Calcium 8.2 mg/dL (8.4-10.2); Hemolysis Index 16
[2019-05-03] MEDS: PRAVACHOL PO SCH (21:17)
[2019-05-03] MEDS: ULTRAM PO PRN (21:19)
[2019-05-03] MEDS: AMBIEN PO PRN (21:26)
[2019-05-03] MEDS ORDERED: NACL 0.45% 1000 ML 1,000 ML IV SCH (23:00)
[2019-05-04 03:38] LABS: Hematocrit 34.9 % (30.3-42.9); Mean Corpuscular HGB Conc 35 % (30-34); Mean Corpuscular Volume 90 fl (79-97); Platelet Count 183 K/mm3 (140-440); Red Blood Count 3.86 M/mm3 (3.65-5.03); Red Cell Distribution Width 13.7 % (13.2-15.2)
[2019-05-04 03:57] LABS: BUN/Creatinine Ratio 13; Blood Urea Nitrogen 9 mg/dL (7-17); Calcium 8.6 mg/dL (8.4-10.2); Hemolysis Index 6
[2019-05-04] MEDS: VANCOMYCIN 1,250 MG in NACL 0.9% 250ML 250 ML IV SCH ×2 (05:22→21:37)
[2019-05-04 07:24] LABS: Band Neutrophils # (Manual) 0.1 K/mm3; Basophils % (Manual) 0 % (0.0-1.8); Total Cells Counted 100
[2019-05-04 07:25] LABS: RBC Morphology Normal
--- NOTE | 2019-05-04 08:08 | Progress Note ---
Assessment and Plan 1. Hyponatremia: Likely from combination of HCTZ and volume depletion. Sodium level is gradually improving. Change IV fluids to NS. Follow Sodium level closely for gradual improvement. 2. FEN: Volume depletion, continue IV fluids. Hypokalemia, improved. Metabolic acidosis, monitor. Monitor lytes. 3. Gastroenteritis. 4. Encephalopathy: Improved. Subjective Date of service: 05/04/19 Interval history: Patient was seen and examined at the bedside. Feeling better. Objective - Vital Signs Vital signs: Vital Signs - 12hr 05/03/19 05/03/19 05/03/19 20:11 20:21 20:27 Temperature 98.5 F Pulse Rate 64 64 Pulse Rate [ From Monitor] Respiratory 17 19 Rate Blood Pressure 126/54 126/54 O2 Sat by Pulse 100 100 Oximetry 05/03/19 05/03/19 05/03/19 20:29 20:31 20:41 Temperature Pulse Rate 63 63 Pulse Rate [ From Monitor] Respiratory 19 19 Rate Blood Pressure 126/54 126/54 O2 Sat by Pulse 100 100 100 Oximetry 05/03/19 05/03/19 05/03/19 20:51 21:00 21:11 Temperature Pulse Rate 61 63 73 Pulse Rate [ From Monitor] Respiratory 18 15 16 Rate Blood Pressure 126/54 128/61 128/61 O2 Sat by Pulse 100 100 99 Oximetry 05/03/19 05/03/19 05/03/19 21:18 21:21 21:31 Temperature Pulse Rate 74 67 68 Pulse Rate [ From Monitor] Respiratory 16 14 Rate Blood Pressure 128/61 128/61 128/61 O2 Sat by Pulse 100 84 Oximetry 05/03/19 05/03/19 05/03/19 21:41 21:51 22:00 Temperature Pulse Rate 66 64 66 Pulse Rate [ From Monitor] Respiratory 18 20 20 Rate Blood Pressure 128/61 128/61 110/59 O2 Sat by Pulse 100 99 100 Oximetry 05/03/19 05/03/19 05/03/19 22:11 22:21 22:31 Temperature Pulse Rate 64 61 58 L Pulse Rate [ From Monitor] Respiratory 21 23 19 Rate Blood Pressure 110/59 110/59 110/59 O2 Sat by Pulse 99 99 99 Oximetry 05/03/19 05/03/19 05/03/19 22:41 22:51 23:01 Temperature Pulse Rate 57 L 55 L 55 L Pulse Rate [ From Monitor] Respiratory 20 18 18 Rate Blood Pressure 110/59 110/59 96/45 O2 Sat by Pulse 98 98 98 Oximetry 05/03/19 05/03/19 05/03/19 23:11 23:15 23:21 Temperature Pulse Rate 52 L 74 53 L Pulse Rate [ From Monitor] Respiratory 17 17 Rate Blood Pressure 96/45 96/45 O2 Sat by Pulse 98 98 Oximetry 05/03/19 05/03/19 05/03/19 23:31 23:41 23:46 Temperature 97.7 F Pulse Rate 59 L 55 L Pulse Rate [ From Monitor] Respiratory 18 19 Rate Blood Pressure 96/45 96/45 O2 Sat by Pulse 99 99 Oximetry 05/03/19 05/04/19 05/04/19 23:51 00:00 00:01 Temperature 97.7 F Pulse Rate 51 L 53 L Pulse Rate [ 54 L From Monitor] Respiratory 17 17 15 Rate Blood Pressure 96/45 101/53 O2 Sat by Pulse 100 99 100 Oximetry 05/04/19 05/04/19 05/04/19 00:11 00:21 00:31 Temperature Pulse Rate 55 L 53 L 53 L Pulse Rate [ From Monitor] Respiratory 18 20 16 Rate Blood Pressure 101/53 101/53 101/53 O2 Sat by Pulse 100 100 100 Oximetry 05/04/19 05/04/19 05/04/19 00:41 00:51 01:00 Temperature Pulse Rate 53 L 54 L 58 L Pulse Rate [ From Monitor] Respiratory 17 17 20 Rate Blood Pressure 101/53 101/53 97/58 O2 Sat by Pulse 100 99 98 Oximetry 05/04/19 05/04/19 05/04/19 01:11 01:21 01:31 Temperature Pulse Rate 56 L 55 L 54 L Pulse Rate [ From Monitor] Respiratory 9 L 15 18 Rate Blood Pressure 97/58 97/58 97/58 O2 Sat by Pulse 100 100 99 Oximetry 05/04/19 05/04/19 05/04/19 01:41 01:51 02:00 Temperature Pulse Rate 54 L 55 L 54 L Pulse Rate [ From Monitor] Respiratory 16 17 17 Rate Blood Pressure 97/58 97/58 108/55 O2 Sat by Pulse 100 100 100 Oximetry 05/04/19 05/04/19 05/04/19 02:11 02:21 02:31 Temperature Pulse Rate 60 57 L 55 L Pulse Rate [ From Monitor] Respiratory 16 18 18 Rate Blood Pressure 108/55 108/55 108/55 O2 Sat by Pulse 100 100 100 Oximetry 05/04/19 05/04/19 05/04/19 02:41 02:51 03:00 Temperature Pulse Rate 58 L 57 L 55 L Pulse Rate [ From Monitor] Respiratory 18 16 17 Rate Blood Pressure 108/55 108/55 118/58 O2 Sat by Pulse 100 100 98 Oximetry 05/04/19 05/04/19 05/04/19 03:11 03:18 03:21 Temperature 97.8 F Pulse Rate 57 L 62 Pulse Rate [ From Monitor] Respiratory 16 9 L Rate Blood Pressure 108/55 108/55 O2 Sat by Pulse 96 100 Oximetry 05/04/19 05/04/19 05/04/19 03:31 03:41 03:51 Temperature Pulse Rate 59 L 59 L 62 Pulse Rate [ From Monitor] Respiratory 17 17 14 Rate Blood Pressure 108/55 108/55 108/55 O2 Sat by Pulse 100 99 100 Oximetry 05/04/19 05/04/19 04:00 04:11 Temperature Pulse Rate 57 L 57 L Pulse Rate [ 59 L From Monitor] Respiratory 17 16 Rate Blood Pressure 120/61 120/61 O2 Sat by Pulse 100 100 Oximetry - General Appearance General appearance: well-developed, well-nourished, appears stated age, other (no distress) EENT: ATNC, PERRL, mucous membranes dry, hearing intact, vision intact Neck: supple Respiratory: Present: Clear to Ascultation Cardiology: regular, S1S2, no murmurs Neurologic: no focal deficit, no asterixis, alert and oriented x3 Musculoskeletal: other (no edema) Psychiatric: cooperative - Lab 05/04/19 03:16 05/04/19 14:23 Most recent lab results Calcium 8.6 mg/dL (8.4-10.2) 05/04/19 03:16 Phosphorus 2.40 mg/dL (2.5-4.5) L 05/04/19 03:16 Magnesium 1.90 mg/dL (1.7-2.3) 05/04/19 03:16 58 mmol/L 05/02/19 Unknown Medications & Allergies - Medications Allergies/Adverse Reactions: Allergies No Known Allergies Allergy (Verified 10/20/15 00:26) Home Medications: Home Medications Medication Instructions Recorded Confirmed Last Taken Type ALPRAZolam [Xanax TAB] 2 mg PO BID PRN 05/02/19 05/02/19 Unknown History Clopidogrel [Plavix] 75 mg PO QDAY 05/02/19 05/02/19 Unknown History Diphenoxylate/Atropine [Lomotil] 1 tab PO QID PRN 05/02/19 05/02/[address] [DepaKOTE DR] 250 mg PO BID 05/02/19 05/02/19 Unknown History Escitalopram Oxalate [Lexapro] 10 mg PO QDAY 05/02/19 05/02/19 Unknown History Fenofibric Acid (Choline) 135 mg PO QDAY 05/02/19 05/02/19 Unknown History [Fenofibric Acid] Lisinopril/Hydrochlorothiazide 1 tab PO QDAY 05/02/19 05/02/19 Unknown History [Zestoretic 20-25 mg] Metoprolol [Lopressor TAB] 50 mg PO BID 05/02/19 05/02/19 Unknown History [place]-3 Acid Ethyl Esters [Triklo] 2 cap PO BID 05/02/19 05/02/19 Unknown History Ondansetron [Zofran Odt] 4 mg PO Q6HR PRN 05/02/19 05/02/19 Unknown History Pravastatin [Pravachol] 40 mg PO QHS 05/02/19 05/02/19 Unknown History Silver Sulfadiazine [Ssd] 1 applic TP BID 05/02/19 05/02/19 Unknown History Sulfamethoxazole/Trimethoprim 1 each PO BID 05/02/19 05/02/19 Unknown History [Bactrim DS TAB] Zolpidem [Ambien] 10 mg PO QHS PRN 05/02/19 05/02/19 Unknown History traMADol [Ultram] 50 mg PO Q6HR PRN 05/02/19 05/02/19 Unknown History Active Medications: Generic Name Dose Route Start Last Admin Trade Name Freq PRN Reason Stop Dose Admin Albuterol 2.5 mg 05/02/19 13:52 Proventil IH Q3HRT PRN Shortness Of Breath Alprazolam 2 mg 05/02/19 13:46 05/03/19 21:17 Xanax PO 2 mg BID PRN Administration Anxiety Clopidogrel Bisulfate 75 mg 05/03/19 10:00 05/03/19 09:04 Plavix PO 75 mg QDAY STEPHY Administration Diphenoxylate HCl/Atropine 1 tab 05/02/19 13:27 Lomotil PO QID PRN Diarrhea Divalproex Sodium 250 mg 05/02/19 22:00 05/03/19 21:[address] PO 250 mg BID STEPHY Administration Escitalopram Oxalate 10 mg 05/03/19 10:00 05/03/19 09:34 Lexapro PO 10 mg QDAY STEPHY Administration Fenofibrate 145 mg 05/03/19 10:00 05/03/19 09:04 Tricor PO 145 mg DAILY STEPHY Administration Fish Oil 2,000 mg 05/02/19 22:00 05/03/19 21:17 Fish Oil PO 2,000 mg BID STEPHY Administration Vancomycin HCl 1,250 mg/ 275 mls @ 137.5 mls/hr 05/02/19 16:00 05/04/19 05:22 Sodium Chloride IV 137.5 mls/hr Q18H STEPHY Administration Sodium Chloride 1,000 mls @ 100 mls/hr 05/03/19 23:00 05/04/19 01:04 Nacl 0.45% 1000 Ml IV 100 mls/hr DIRECT STEPHY Administration Lisinopril 20 mg 05/03/19 10:00 05/03/19 09:04 Zestril PO 20 mg QDAY STEPHY Administration Lorazepam 1 mg 05/02/19 13:55 05/02/19 14:20 Ativan IV 1 mg Q6H PRN Administration Agitation Metoprolol Tartrate 50 mg 05/02/19 22:00 05/03/19 21:18 Lopressor PO 50 mg BID STEPHY Administration Ondansetron HCl 4 mg 05/02/19 13:27 Zofran Odt PO Q6HR PRN Nausea Pravastatin Sodium 40 mg 05/02/19 22:00 05/03/19 21:17 Pravachol PO 40 mg QHS STEPHY Administration Silver Sulfadiazine 1 applic 05/02/19 22:00 05/03/19 21:27 Thermazene 50 Gram TP 1 applic BID STEPHY Administration Sodium Chloride 10 ml 05/02/19 22:00 05/03/19 21:26 Sodium Chloride Flush Syringe 10 Ml IV 10 ml BID STEPHY Administration Sodium Chloride 10 ml 05/02/19 13:52 Sodium Chloride Flush Syringe 10 Ml IV PRN PRN LINE FLUSH Tramadol HCl 50 mg 05/02/19 13:27 05/03/19 21:19 Ultram PO 50 mg Q6HR PRN Administration Pain Zolpidem Tartrate 10 mg 05/02/19 13:27 05/03/19 21:26 Ambien PO 10 mg QHS PRN Administration Sleep
[2019-05-04] MEDS ORDERED: NACL 0.9% 1000 ML 1,000 ML IV SCH (09:00)
[2019-05-04] MEDS ORDERED: SODIUM BICARBONATE PO NR (09:30)
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
[2019-05-04] MEDS: SODIUM CHLORIDE FLUSH SYRINGE 10 ML IV SCH ×2 (11:00→21:39)
[2019-05-04] MEDS: TRICOR PO SCH (11:00)
[2019-05-04] MEDS: FISH OIL PO SCH ×2 (11:00→21:37)
[2019-05-04] MEDS: PLAVIX PO SCH (11:00)
[2019-05-04] MEDS: ZESTRIL PO SCH (11:00)
[2019-05-04] MEDS: LEXAPRO PO SCH (11:00)
[2019-05-04] MEDS: THERMAZENE 50 GRAM TP SCH ×2 (11:00→21:46)
[2019-05-04] MEDS: LOPRESSOR PO SCH ×2 (11:37→21:37)
[2019-05-04] MEDS: XANAX PO PRN ×2 (13:15→21:46)
[2019-05-04 15:16] LABS: BUN/Creatinine Ratio 10; Blood Urea Nitrogen 7 mg/dL (7-17); Calcium 8.4 mg/dL (8.4-10.2); Hemolysis Index 3
[2019-05-04] MEDS: SODIUM BICARBONATE PO SCH (16:35)
[2019-05-04] MEDS: PRAVACHOL PO SCH (21:37)
[2019-05-04] MEDS: AMBIEN PO PRN (21:50)
[2019-05-05] MEDS ORDERED: SODIUM PHOSPHATE 30 MMOL in NACL 0.9% 500 ML 500 ML IV ONE (07:15)
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
[2019-05-05 07:42] LABS: BUN/Creatinine Ratio 12; Blood Urea Nitrogen 7 mg/dL (7-17); Calcium 8.6 mg/dL (8.4-10.2); Hemolysis Index 3
[2019-05-05] MEDS ORDERED: SODIUM CHLORIDE PO SCH (10:00)
[2019-05-05] MEDS: ZESTRIL PO SCH (10:31)
[2019-05-05] MEDS: ULTRAM PO PRN (10:32)
[2019-05-05] MEDS: PLAVIX PO SCH (10:33)
[2019-05-05] MEDS: LEXAPRO PO SCH (10:33)
[2019-05-05] MEDS: FISH OIL PO SCH (10:33)
[2019-05-05] MEDS: XANAX PO PRN (10:34)
[2019-05-05] MEDS: SODIUM BICARBONATE PO SCH ×2 (10:34→17:33)
[2019-05-05] MEDS: LOPRESSOR PO SCH (10:35)
[2019-05-05] MEDS: TRICOR PO SCH (10:35)
[2019-05-05] MEDS: SODIUM CHLORIDE FLUSH SYRINGE 10 ML IV SCH (10:36)
[2019-05-05] MEDS: THERMAZENE 50 GRAM TP SCH (10:37)
--- NOTE | 2019-05-05 10:45 | Progress Note ---
Assessment and Plan 1. Hyponatremia: Likely from combination of HCTZ and volume depletion. Sodium level has gradually improved. 2. FEN: Volume depletion, improved. Hypokalemia, improved. Metabolic acidosis, monitor. Replete Phos. Monitor lytes. 3. Gastroenteritis: Improved. 4. Encephalopathy: Improved. Subjective Date of service: 05/05/19 Interval history: Patient was seen and examined at the bedside. Feeling better. Objective - Vital Signs Vital signs: Vital Signs - 12hr 05/05/19 05/05/19 05/05/19 02:19 07:28 08:13 Temperature 99.1 F 99.6 F Pulse Rate 63 64 Respiratory 18 18 Rate Blood Pressure 139/65 129/64 O2 Sat by Pulse 99 100 95 Oximetry 05/05/19 05/05/19 10:31 10:35 Temperature Pulse Rate 64 64 Respiratory Rate Blood Pressure 129/64 129/64 O2 Sat by Pulse Oximetry - General Appearance General appearance: well-developed, well-nourished, appears stated age, other (no distress) EENT: ATNC, PERRL, hearing intact, vision intact Neck: supple Respiratory: Present: Clear to Ascultation Cardiology: regular, S1S2, no murmurs Gastrointestinal: normoactive bowel sounds, no tenderness, no distended Integumentary: no rash, warm and dry Neurologic: no focal deficit, no asterixis, alert and oriented x3 Musculoskeletal: other (no edema) Psychiatric: cooperative - Lab 05/04/19 03:16 05/05/19 07:05 Most recent lab results Calcium 8.6 mg/dL (8.4-10.2) 05/05/19 07:05 Phosphorus 2.10 mg/dL (2.5-4.5) L 05/05/19 07:05 Magnesium 1.90 mg/dL (1.7-2.3) 05/04/19 03:16 58 mmol/L 05/02/19 Unknown Medications & Allergies - Medications Allergies/Adverse Reactions: Allergies No Known Allergies Allergy (Verified 10/20/15 00:26) Home Medications: Home Medications Medication Instructions Recorded Confirmed Last Taken Type ALPRAZolam [Xanax TAB] 2 mg PO BID PRN 05/02/19 05/02/19 Unknown History Clopidogrel [Plavix] 75 mg PO QDAY 05/02/19 05/02/19 Unknown History Diphenoxylate/Atropine [Lomotil] 1 tab PO QID PRN 05/02/19 05/02/19 Unknown History Divalproex [Susan Saldana] 250 mg PO BID 05/02/19 05/02/19 Unknown History Escitalopram Oxalate [Lexapro] 10 mg PO QDAY 05/02/19 05/02/19 Unknown History Fenofibric Acid (Choline) 135 mg PO QDAY 05/02/19 05/02/19 Unknown History [Fenofibric Acid] Metoprolol [Lopressor TAB] 50 mg PO BID 05/02/19 05/02/19 Unknown History [place]-3 Acid Ethyl Esters [Triklo] 2 cap PO BID 05/02/19 05/02/19 Unknown History Pravastatin [Pravachol] 40 mg PO QHS 05/02/19 05/02/19 Unknown History Silver Sulfadiazine [Ssd] 1 applic TP BID 05/02/19 05/02/19 Unknown History Sulfamethoxazole/Trimethoprim 1 each PO BID 05/02/19 05/02/19 Unknown History [Bactrim DS TAB] Zolpidem [Ambien] 10 mg PO QHS PRN 05/02/19 05/02/19 Unknown History traMADol [Ultram 50 MG tab] 50 mg PO Q6HR PRN 05/02/19 05/02/19 Unknown History Lisinopril [Zestril TAB] 20 mg PO QDAY #30 tablet 05/05/19 Unknown Rx Ondansetron [Zofran ODT TAB] 4 mg PO Q6HR PRN #30 tab.rapdis 05/05/19 Unknown Rx Sodium Bicarbonate 1,300 mg PO TID #10 tablet 05/05/19 Unknown Rx Active Medications: Generic Name Dose Route Start Last Admin Trade Name Freq PRN Reason Stop Dose Admin Albuterol 2.5 mg 05/02/19 13:52 Proventil IH Q3HRT PRN Shortness Of Breath Alprazolam 2 mg 05/02/19 13:46 05/05/19 10:34 Xanax PO 2 mg BID PRN Administration Anxiety Clopidogrel Bisulfate 75 mg 05/03/19 10:00 05/05/19 10:33 Plavix PO 75 mg QDAY STEPHY Administration Diphenoxylate HCl/Atropine 1 tab 05/02/19 13:27 Lomotil PO QID PRN Diarrhea Divalproex Sodium 250 mg 05/02/19 22:00 05/05/19 10:[address] PO 250 mg BID STEPHY Administration Escitalopram Oxalate 10 mg 05/03/19 10:00 05/05/19 10:33 Lexapro PO 10 mg QDAY STEPHY Administration Fenofibrate 145 mg 05/03/19 10:00 05/05/19 10:35 Tricor PO 145 mg DAILY STEPHY Administration Fish Oil 2,000 mg 05/02/19 22:00 05/05/19 10:33 Fish Oil PO 2,000 mg BID STEPHY Administration Vancomycin HCl 1,250 mg/ 275 mls @ 137.5 mls/hr 05/02/19 16:00 05/04/19 21:37 Sodium Chloride IV 137.5 mls/hr Q18H STEPHY Administration Sodium Chloride 1,000 mls @ 100 mls/hr 05/04/19 09:00 05/04/19 11:32 Nacl 0.9% 1000 Ml IV 100 mls/hr DIRECT STEPHY Administration Sodium Phosphate 30 mmol/ 510 mls @ 85 mls/hr 05/05/19 07:15 Sodium Chloride IV 05/05/19 13:14 ONCE ONE Lisinopril 20 mg 05/03/19 10:00 05/05/19 10:31 Zestril PO 20 mg QDAY STEPHY Administration Lorazepam 1 mg 05/02/19 13:55 05/02/19 14:20 Ativan IV 1 mg Q6H PRN Administration Agitation Metoprolol Tartrate 50 mg 05/02/19 22:00 05/05/19 10:35 Lopressor PO 50 mg BID STEPHY Administration Ondansetron HCl 4 mg 05/02/19 13:27 Zofran Odt PO Q6HR PRN Nausea Pravastatin Sodium 40 mg 05/02/19 22:00 05/04/19 21:37 Pravachol PO 40 mg QHS STEPHY Administration Silver Sulfadiazine 1 applic 05/02/19 22:00 05/05/19 10:37 Thermazene 50 Gram TP 1 applic BID STEPHY Administration Sodium Bicarbonate 1,300 mg 05/04/19 17:00 05/05/19 10:34 Sodium Bicarbonate PO 1,300 mg TID STEPHY Administration Sodium Chloride 10 ml 05/02/19 22:00 05/05/19 10:36 Sodium Chloride Flush Syringe 10 Ml IV 10 ml BID STEPHY Administration Sodium Chloride 10 ml 05/02/19 13:52 Sodium Chloride Flush Syringe 10 Ml IV PRN PRN LINE FLUSH Sodium Chloride 1 gm 05/05/19 10:00 05/05/19 10:36 Sodium Chloride PO 1 gm BID STEPHY Administration Tramadol HCl 50 mg 05/02/19 13:27 05/05/19 10:32 Ultram PO 50 mg Q6HR PRN Administration Pain Zolpidem Tartrate 10 mg 05/02/19 13:27 05/04/19 21:50 Ambien PO 10 mg QHS PRN Administration Sleep
[2019-05-05 14:55] VITALS: BP 139/67
[2019-05-05] MEDS: VANCOMYCIN 1,250 MG in NACL 0.9% 250ML 250 ML IV SCH (17:28)
== END 2019-05-05 19:10 | disposition home health service (06) | DRG 640 ==
LOC: ED 10:29 → IMCU 13:52 → 2B-ACE 05-04 13:50
PROVIDERS: ADMIT Internal Medicine; ATTEND Internal Medicine
DX: E87.1 Hypo-osmolality and hyponatremia (principal); G93.41 Metabolic encephalopathy; N61.0 Mastitis without abscess; E87.2 Acidosis; A08.4 Viral intestinal infection, unspecified; I10 Essential (primary) hypertension; I25.2 Old myocardial infarction; F32.9 Major depressive disorder, single episode, unspecified; F41.9 Anxiety disorder, unspecified; I25.10 Atherosclerotic heart disease of native coronary artery without angina pectoris; E87.6 Hypokalemia; E86.9 Volume depletion, unspecified; E83.39 Other disorders of phosphorus metabolism; Z95.5 Presence of coronary angioplasty implant and graft; Z87.891 Personal history of nicotine dependence
CPT/HCPCS: 36415; 70450; 71045; 80048; 80053; 80202; 81001; 83690; 83735; 83880; 83930; 83935; 84100; 84295; 84300; 84484; 85007; 85025; 93005; 93010; 93306; 94760; 96374; 96375; 99291; 99406; G0378; A9270-GY; J2060; J2405; J3370; J3475; J7030; J7040; J7050; J7070

== ENCOUNTER 2019-08-20 16:48 | Observation (INO) | payer MEDICARE ==
--- NOTE | 2019-08-20 17:58 | Event Note ---
ED Screening Note Date of service: 08/20/19 Time: 17:54 ED Screening Note: This is a 69 y.o. F. that presents to the ER with weakness, n/v/d for 4 days. Patient reports cramping in legs and near syncopal episode which remind of her when she was diagnosed with hyponatremia in April. This initial assessment/diagnostic orders/clinical plan/treatment(s) is/are subject to change based on patients health status, clinical progression and re- assessment by fellow clinical providers in the ED. Further treatment and workup at subsequent clinical providers discretion. Patient/guardian urged not to elope from the ED as their condition may be serious if not clinically assessed and managed. Initial orders include: Labs
[2019-08-20 18:40] LABS: Hematocrit 42.7 % (30.3-42.9); Hemoglobin 14.5 gm/dl (10.1-14.3); Mean Corpuscular HGB Conc 34 % (30-34); Mean Corpuscular Volume 89 fl (79-97); Platelet Count 249 K/mm3 (140-440); Red Blood Count 4.79 M/mm3 (3.65-5.03)
[2019-08-20 19:03] LABS: Alanine Aminotransferase 13 units/L (7-56); Albumin 4.1 g/dL (3.9-5); BUN/Creatinine Ratio 14; Blood Urea Nitrogen 13 mg/dL (7-17); Hemolysis Index 43
[2019-08-20 19:21] LABS: Amorphous Crystals,Urine Few; Bilirubin,Urine NEG (Negative); Blood,Urine NEG (Negative); Color,Urine Yellow (Yellow); Mucus,Urine FEW /HPF; Protein,Urine <15 mg/dL mg/dL (Negative); Urobilinogen,Urine < 2.0 mg/dL (<2.0)
[2019-08-20 20:01] LABS: Basophils % (Manual) 0 % (0.0-1.8); Eosinophils % (Manual) 0 % (0.0-4.3); Total Cells Counted 100
[2019-08-20 20:02] LABS: Large Platelets 1+; Platelet Estimate Consistent w Auto; RBC Morphology Normal
[2019-08-20] MEDS ORDERED: ONDANSETRON 4 MG/2 ML INJ IV STA (22:18)
[2019-08-20] MEDS ORDERED: SODIUM CHLORIDE 0.9% 1000 ML 1,000 ML IV ONE (22:18)
--- NOTE | 2019-08-20 22:27 | Emergency Department Report ---
ED N/V/D HPI - General Chief complaint: Nausea/Vomiting/Diarrhea Stated complaint: WEAK/SHAKY/DIARRHEA/VOMIT Time Seen by Provider: 08/20/19 17:54 Source: patient Mode of arrival: Ambulatory Limitations: No Limitations - History of Present Illness MD complaint: nausea, diarrhea -: Gradual, days(s) (2) Description of Diarrhea: water, green Associated Abdominal Pain: Yes (LLQ) Radiation: none Severity: mild, moderate Quality: cramping, stabbing, aching Consistency: intermittent Improves with: none Worsens with: none Associated Symptoms: myalgias, malaise, weakness - Related Data Home Medications Medication Instructions Recorded Confirmed Last Taken ALPRAZolam [Xanax TAB] 2 mg PO BID PRN 05/02/19 08/21/19 Unknown Clopidogrel [Plavix] 75 mg PO QDAY 05/02/19 08/21/[address] [Depakote Dr] 250 mg PO BID 05/02/19 08/21/19 Unknown Escitalopram Oxalate [Lexapro] 10 mg PO QDAY 05/02/19 08/21/19 Unknown Fenofibric Acid (Choline) 135 mg PO QDAY 05/02/19 08/21/19 Unknown [Fenofibric Acid] Metoprolol [Lopressor TAB] 50 mg PO BID 05/02/19 08/21/19 Unknown [place]-3 Acid Ethyl Esters [Triklo] 2 cap PO BID 05/02/19 08/21/19 Unknown Pravastatin [Pravachol] 40 mg PO QHS 05/02/19 08/21/19 Unknown Zolpidem [Ambien] 10 mg PO QHS PRN 05/02/19 08/21/19 Unknown traMADol [Ultram 50 MG tab] 50 mg PO Q6HR PRN 05/02/19 08/21/19 Unknown Previous Rx's Medication Instructions Recorded Last Taken Type Lisinopril [Zestril TAB] 20 mg PO QDAY #30 tablet 05/05/19 Unknown Rx Ondansetron [Zofran ODT TAB] 4 mg PO Q6HR PRN #30 tab.rapdis 05/05/19 Unknown Rx Allergies Allergy/AdvReac Type Severity Reaction Status Date / Time No Known Allergies Allergy Verified 10/20/15 00:26 ED Review of Systems ROS: Stated complaint: WEAK/SHAKY/DIARRHEA/VOMIT Other details as noted in HPI Comment: All other systems reviewed and negative ED Past Medical Hx - Past Medical History Previous Medical History?: Yes Hx Hypertension: Yes Hx Heart Attack/AMI: Yes Hx Psychiatric Treatment: Yes (Depression, Anxiety) Additional medical history: CAD - Surgical History Past Surgical History?: Yes Hx Coronary Stent: Yes - Social History Smoking Status: Former Smoker Substance Use Type: None - Medications Home Medications: Home Medications Medication Instructions Recorded Confirmed Last Taken Type ALPRAZolam [Xanax TAB] 2 mg PO BID PRN 05/02/19 08/21/19 Unknown History Clopidogrel [Plavix] 75 mg PO QDAY 05/02/19 08/21/[address] [Depakote Dr] 250 mg PO BID 05/02/19 08/21/19 Unknown History Escitalopram Oxalate [Lexapro] 10 mg PO QDAY 05/02/19 08/21/19 Unknown History Fenofibric Acid (Choline) 135 mg PO QDAY 05/02/19 08/21/19 Unknown History [Fenofibric Acid] Metoprolol [Lopressor TAB] 50 mg PO BID 05/02/19 08/21/19 Unknown History [place]-3 Acid Ethyl Esters [Triklo] 2 cap PO BID 05/02/19 08/21/19 Unknown History Pravastatin [Pravachol] 40 mg PO QHS 05/02/19 08/21/19 Unknown History Zolpidem [Ambien] 10 mg PO QHS PRN 05/02/19 08/21/19 Unknown History traMADol [Ultram 50 MG tab] 50 mg PO Q6HR PRN 05/02/19 08/21/19 Unknown History Lisinopril [Zestril TAB] 20 mg PO QDAY #30 tablet 05/05/19 08/21/19 Unknown Rx Ondansetron [Zofran ODT TAB] 4 mg PO Q6HR PRN #30 tab.rapdis 05/05/19 08/21/19 Unknown Rx ED Physical Exam - General Limitations: No Limitations General appearance: alert, in no apparent distress - Head Head exam: Present: atraumatic, normocephalic - Eye Eye exam: Present: normal appearance - ENT ENT exam: Present: mucous membranes moist - Neck Neck exam: Present: normal inspection - Respiratory Respiratory exam: Present: normal lung sounds bilaterally. Absent: respiratory distress - Cardiovascular Cardiovascular Exam: Present: regular rate, normal rhythm. Absent: systolic murmur, diastolic murmur, rubs, gallop - GI/Abdominal GI/Abdominal exam: Present: soft, normal bowel sounds - Extremities Exam Extremities exam: Present: normal inspection - Back Exam Back exam: Present: normal inspection - Neurological Exam Neurological exam: Present: alert, oriented X3 - Psychiatric Psychiatric exam: Present: normal affect, normal mood - Skin Skin exam: Present: warm, dry, intact, normal color. Absent: rash ED Course Vital Signs 08/20/19 08/20/19 08/21/19 17:54 23:14 00:19 Temperature 97.7 F 98.0 F Pulse Rate 95 H 70 Respiratory 20 20 20 Rate Blood Pressure 161/85 Blood Pressure 161/85 161/71 [Right] O2 Sat by Pulse 100 98 99 Oximetry - Consultations Consultation #1: 08/20/19 22:28 Case was discussed with Dr. Parish who was made aware of the hyponatremia. Plan is going to be admission for mesentery. However, we will move forward with the CT scan to assess the pain in the left lower quadrant. This started on fluids and anti-nausea medication. Consultation #2: 08/21/19 00:45 Case discussed with hospitalist for admission where the patient's last name and phone number and plan to complete evaluate him for admission as well. Admission is for hyponatremia, sodium is 125, which is decreased from her previous discharge sodium of 132 ED Medical Decision Making - Lab Data Result diagrams: 08/20/19 18:22 08/20/19 18:22 - Medical Decision Making 69-year-old female presents to the emergency department complaining of nausea, vomiting, diarrhea, and sensation of weakness and also jitteriness which gives her suspicion of having a low sodium. She states she has similar symptoms back in April of this year and was found to have low sodium at that time which was secondary to the the the diarrhea which she has again. She reports no hematemesis, no hematochezia, no hematuria and no no fever, has abdominal pain to the left lower quadrant. CT scan was obtained and yielded Critical care attestation.: If time is entered above; I have spent that time in minutes in the direct care of this critically ill patient, excluding procedure time. ED Disposition Clinical Impression: Hyponatremia, Diarrhea, Vomiting, Abdominal pain Disposition: DC-09 OP ADMIT IP TO THIS HOSP Is pt being admited?: Yes Does the pt Need Aspirin: No Condition: Stable Referrals: PRIMARY CARE, [Primary Care Provider] - 3-5 Days
[2019-08-20] MEDS ORDERED: MORPHINE 4 MG/1 ML INJ IV STA (22:48)
--- NOTE | 2019-08-21 00:01 | Cat Scan Report ---
CT ABDOMEN AND PELVIS WITH CONTRAST INDICATION / CLINICAL INFORMATION: Lower ABD Pain. Nausea, Vomiting, Diarrhea. 100 ML OMNIPAQUE 300 TECHNIQUE: Axial CT images were obtained through the abdomen and pelvis after 100 mL Omnipaque [address] scans at this location are performed using CT dose reduction for ALARA by means of automated exposure control. COMPARISON: None available. FINDINGS: LOWER CHEST: No acute findings. Several small incidental pulmonary nodules in the right middle lobe m easuring up to 3 mm in size as seen on axial series 2 image 2. LIVER: No significant abnormality. GALLBLADDER: Surgically absent. BILE DUCTS: No significant abnormality. PANCREAS: No significant abnormality. SPLEEN: No significant abnormality. ADRENALS: No significant abnormality. RIGHT KIDNEY and URETER: Tiny nonobstructing stone in the mid kidney. No ureteral stone or hydronephr osis. LEFT KIDNEY and URETER: No significant abnormality. STOMACH and SMALL BOWEL: No significant abnormality. COLON: No significant abnormality. APPENDIX: Not visualized. PERITONEUM: No free fluid. No free air. No fluid collection. LYMPH NODES: No significant adenopathy. AORTA and ARTERIES: Moderate atherosclerotic calcification without acute abnormality. IVC and VEINS: No significant abnormality. URINARY BLADDER: No significant abnormality. REPRODUCTIVE ORGANS: No significant abnormality. ADDITIONAL FINDINGS: Small bilateral fat-containing inguinal hernias, left larger than right. No jcarlos l involvement. SKELETAL SYSTEM: No significant abnormality. IMPRESSION: 1. No inflammatory process or bowel obstruction. 2. Tiny nonobstructing stone in the right kidney. No ureteral stones or hydronephrosis. 3. Small bilateral fat-containing inguinal hernias. 4. Small 3 mm incidental pulmonary nodules in the right middle lobe. Please see below for follow-up r ecommendation. INCIDENTAL PULMONARY NODULE RECOMMENDATION Recommendation: Solid Nodule size <6 mm -- Single or Multiple - Low Risk Patient: No routine follow-up - High Risk Patient: Optional CT at 12 months Note These recommendations do not apply to lung cancer screening, patients with immunosuppression, o r patients with known primary cancer. Note Newly detected indeterminate nodule in persons 35 years of age or older. Persons under the age of 35 should not receive follow-up unless there is a known primary cancer. Low Risk Patient -- minimal or absent history of smoking and of other known risk factors. High Risk Patient -- history of smoking or of other known risk factors. Nodule dimensions are average of long and short axes, rounded to the nearest millimeter. Based on 2017 Fleischner Society Guidelines found in Radiology 2017 284:228-243. [email or web address] Signer Name: Lidia Hawk MD Signed: 08/20/2019 11:57 PM Workstation Name: [facility] [id number]
[2019-08-21] MEDS ORDERED: SODIUM CHLORIDE 0.9% 1000 ML 1,000 ML IV ONE (01:00)
[2019-08-21] MEDS ORDERED: ACETAMINOPHEN 325 MG TAB PO PRN (01:33)
[2019-08-21] MEDS ORDERED: ZOLPIDEM 5 MG TAB PO PRN (01:39)
[2019-08-21] MEDS ORDERED: PROMETHAZINE 12.5 MG RECT SUPP PR PRN (01:42)
[2019-08-21] MEDS ORDERED: LOPERAMIDE 2 MG CAP PO ONE (01:42)
[2019-08-21] MEDS ORDERED: LOPERAMIDE 2 MG CAP PO PRN (01:42)
[2019-08-21] MEDS: MORPHINE 2 MG/1 ML INJ IV PRN (02:13)
[2019-08-21] MEDS: ONDANSETRON 4 MG/2 ML INJ IV PRN ×3 (02:13→19:36)
--- NOTE | 2019-08-21 02:39 | History and Physical Report ---
History of Present Illness Date of examination: 08/21/19 Chief complaint: Diarrhea History of present illness: Patient is a 69 year old female with history of CAD who presented to the ED on account of 4 days history of diarrhea. The stool is non-mucoid and nonbloody. She has associated nausea with vomiting times multiple episodes, poor oral intake, low abdominal pain, chills without fever, headaches and lightheadedness. She denies chest pain, shortness of breath, palpitation, cough, syncope or loss of consciousness. Patient reported history of intermittent constipation with diarrhea and was taking laxatives prior to the onset of diarrhea. Past History Past Medical History: CAD, hypertension, other (psychiatry disorder, insomnia, dyslipidemia) Past Surgical History: Other (cardiac stent placement) Social history: smoking (patient has more than 40 years history of cigarette smoking. She currently smokes half pack every 2 days. She denies alcohol or illicit drug use) Family history: CAD (father) Medications and Allergies Allergies Allergy/AdvReac Type Severity Reaction Status Date / Time No Known Allergies Allergy Verified 10/20/15 00:26 Home Medications Medication Instructions Recorded Confirmed Last Taken Type ALPRAZolam [Xanax TAB] 2 mg PO BID PRN 05/02/19 08/21/19 Unknown History Clopidogrel [Plavix] 75 mg PO QDAY 05/02/19 08/21/19 Unknown History Divalproex [Susan Saldana] 250 mg PO BID 05/02/19 08/21/19 Unknown History Escitalopram Oxalate [Lexapro] 10 mg PO QDAY 05/02/19 08/21/19 Unknown History Fenofibric Acid (Choline) 135 mg PO QDAY 05/02/19 08/21/19 Unknown History [Fenofibric Acid] Metoprolol [Lopressor TAB] 50 mg PO BID 05/02/19 08/21/19 Unknown History [place]-3 Acid Ethyl Esters [Triklo] 2 cap PO BID 05/02/19 08/21/19 Unknown History Pravastatin [Pravachol] 40 mg PO QHS 05/02/19 08/21/19 Unknown History Zolpidem [Ambien] 10 mg PO QHS PRN 05/02/19 08/21/19 Unknown History traMADol [Ultram 50 MG tab] 50 mg PO Q6HR PRN 05/02/19 08/21/19 Unknown History Lisinopril [Zestril TAB] 20 mg PO QDAY #30 tablet 05/05/19 08/21/19 Unknown Rx Ondansetron [Zofran ODT TAB] 4 mg PO Q6HR PRN #30 tab.rapdis 05/05/19 08/21/19 Unknown Rx Active Meds: Active Medications Acetaminophen (Tylenol) 650 mg PO Q4H PRN PRN Reason: Pain MILD(1-3)/Fever >100.5/BRICENO Enoxaparin Sodium (Lovenox) 40 mg SUB-Q QDAY STEPHY Sodium Chloride (Nacl 0.9% 1000 Ml) 1,000 mls @ 100 mls/hr IV DIRECT STEPHY Loperamide HCl (Imodium) 2 mg PO Q2H PRN PRN Reason: Diarrhea Morphine Sulfate (Morphine) 2 mg IV Q4H PRN PRN Reason: Pain , Severe (7-10) Last Admin: 08/21/19 02:13 Dose: 2 mg Documented by: Ondansetron HCl (Zofran) 4 mg IV Q8H PRN PRN Reason: Nausea And Vomiting Last Admin: 08/21/19 02:13 Dose: 4 mg Documented by: Oxycodone/Acetaminophen (Percocet 5/325) 1 tab PO Q6H PRN PRN Reason: Pain, Moderate (4-6) Promethazine HCl (Phenergan) 12.5 mg NC Q6H PRN PRN Reason: Nausea And Vomiting Sodium Chloride (Sodium Chloride Flush Syringe 10 Ml) 10 ml IV BID STEPHY Sodium Chloride (Sodium Chloride Flush Syringe 10 Ml) 10 ml IV PRN PRN PRN Reason: LINE FLUSH Zolpidem Tartrate (Ambien) 5 mg PO QHS PRN PRN Reason: Insomnia Review of Systems All systems: negative (all other systems reviewed with the patient and are negative unless otherwise stated above) Exam - Constitutional Vitals: Temp Pulse Resp BP Pulse Ox 98.0 F 70 20 161/71 99 08/21/19 00:19 08/21/19 00:19 08/21/19 02:13 08/21/19 00:19 08/21/19 00:19 General appearance: Present: no acute distress, well-nourished - EENT Eyes: Present: PERRL, EOM intact ENT: hearing intact, clear oral mucosa - Neck Neck: Present: supple, normal ROM - Respiratory Respiratory effort: normal Respiratory: bilateral: CTA - Cardiovascular Rhythm: regular Heart Sounds: Present: S1 & S2. Absent: rub, click - Extremities Extremities: pulses symmetrical, No edema Peripheral Pulses: within normal limits - Abdominal General gastrointestinal: Present: soft, tender (epigastric and left lower quadrant), non-distended, normal bowel sounds Female genitourinary: Present: deferred - Rectal Rectal Exam: deferred - Integumentary Integumentary: Present: clear, warm, dry - Musculoskeletal Musculoskeletal: gait normal, strength equal bilaterally - Psychiatric Psychiatric: appropriate mood/affect, intact judgment & insight - Neurologic Neurologic: CNII-XII intact, moves all extremities Results - Labs CBC & Chem 7: 08/20/19 18:22 08/20/19 18:22 Labs: Laboratory Last Values WBC 3.5 K/mm3 (4.5-11.0) L 08/20/19 18:22 RBC 4.79 M/mm3 (3.65-5.03) 08/20/19 18:22 Hgb 14.5 gm/dl (10.1-14.3) H 08/20/19 18:22 Hct 42.7 % (30.3-42.9) 08/20/19 18:22 MCV 89 fl (79-97) 08/20/19 18:22 MCH 30 pg (28-32) 08/20/19 18:22 MCHC 34 % (30-34) 08/20/19 18:22 RDW 13.0 % (13.2-15.2) L 08/20/19 18:22 Plt Count 249 K/mm3 (140-440) 08/20/19 18:22 [place] % (Auto) Canvas Repairer 08/20/19 18:22 Add Manual Diff Complete 08/20/19 18:22 Total Counted 100 08/20/19 18:22 Seg Neuts % (Manual) 55.0 % (40.0-70.0) 08/20/19 18:22 Band Neutrophils % 0 % 08/20/19 18:22 Lymphocytes % (Manual) 30.0 % (13.4-35.0) 08/20/19 18:22 Reactive Lymphs % (Man) 0 % 08/20/19 18:22 Monocytes % (Manual) 15.0 % (0.0-7.3) H 08/20/19 18:22 Eosinophils % (Manual) 0 % (0.0-4.3) 08/20/19 18:22 Basophils % (Manual) 0 % (0.0-1.8) 08/20/19 18:22 Metamyelocytes % 0 % 08/20/19 18:22 Myelocytes % 0 % 08/20/19 18:22 Promyelocytes % 0 % 08/20/19 18:22 Blast Cells % 0 % 08/20/19 18:22 Nucleated RBC % Not Reportable 08/20/19 18:22 Seg Neutrophils # Man 1.9 K/mm3 (1.8-7.7) 08/20/19 18:22 Band Neutrophils # 0.0 K/mm3 08/20/19 18:22 Lymphocytes # (Manual) 1.1 K/mm3 (1.2-5.4) L 08/20/19 18:22 Abs React Lymphs (Man) 0.0 K/mm3 08/20/19 18:22 Monocytes # (Manual) 0.5 K/mm3 (0.0-0.8) 08/20/19 18:22 Eosinophils # (Manual) 0.0 K/mm3 (0.0-0.4) 08/20/19 18:22 Basophils # (Manual) 0.0 K/mm3 (0.0-0.1) 08/20/19 18:22 Metamyelocytes # 0.0 K/mm3 08/20/19 18:22 Myelocytes # 0.0 K/mm3 08/20/19 18:22 Promyelocytes # 0.0 K/mm3 08/20/19 18:22 Blast Cells # 0.0 K/mm3 08/20/19 18:22 WBC Morphology Not Reportable 08/20/19 18:22 Hypersegmented Neuts Not Reportable 08/20/19 18:22 Hyposegmented Neuts Not Reportable 08/20/19 18:22 Hypogranular Neuts Not Reportable 08/20/19 18:22 Smudge Cells Not Reportable 08/20/19 18:22 Toxic Granulation Not Reportable 08/20/19 18:22 Toxic Vacuolation Not Reportable 08/20/19 18:22 Dohle Bodies Not Reportable 08/20/19 18:22 Pelger-Huet Anomaly Not Reportable 08/20/19 18:22 Александр Rods Not Reportable 08/20/19 18:22 Platelet Estimate Consistent w auto 08/20/19 18:22 Clumped Platelets Not Reportable 08/20/19 18:22 Plt Clumps, EDTA Not Reportable 08/20/19 18:22 Large Platelets 1+ 08/20/19 18:22 Giant Platelets Not Reportable 08/20/19 18:22 Platelet Satelliting Not Reportable 08/20/19 18:22 Plt Morphology Comment Not Reportable 08/20/19 18:22 RBC Morphology Normal 08/20/19 18:22 Dimorphic RBCs Not Reportable 08/20/19 18:22 Polychromasia Not Reportable 08/20/19 18:22 Hypochromasia Not Reportable 08/20/19 18:22 Poikilocytosis Not Reportable 08/20/19 18:22 Anisocytosis Not Reportable 08/20/19 18:22 Microcytosis Not Reportable 08/20/19 18:22 Macrocytosis Not Reportable 08/20/19 18:22 Spherocytes Not Reportable 08/20/19 18:22 Pappenheimer Bodies Not Reportable 08/20/19 18:22 Sickle Cells Not Reportable 08/20/19 18:22 Target Cells Not Reportable 08/20/19 18:22 Tear Drop Cells Not Reportable 08/20/19 18:22 Ovalocytes Not Reportable 08/20/19 18:22 Helmet Cells Not Reportable 08/20/19 18:22 [place] Bodies Not Reportable 08/20/19 18:22 [place] Rings Not Reportable 08/20/19 18:22 Keith Cells Not Reportable 08/20/19 18:22 Bite Cells Not Reportable 08/20/19 18:22 Crenated Cell Not Reportable 08/20/19 18:22 Elliptocytes Not Reportable 08/20/19 18:22 Acanthocytes (Spur) Not Reportable 08/20/19 18:22 Rouleaux Not Reportable 08/20/19 18:22 Hemoglobin C Crystals Not Reportable 08/20/19 18:22 Schistocytes Not Reportable 08/20/19 18:22 Malaria parasites Not Reportable 08/20/19 18:22 Álvaro Bodies Not Reportable 08/20/19 18:22 Hem Pathologist Commnt No 08/20/19 18:22 Sodium 125 mmol/L (137-145) L 08/20/19 18:22 Potassium 4.0 mmol/L (3.6-5.0) 08/20/19 18:22 Chloride 91.5 mmol/L (98-107) L 08/20/19 18:22 Carbon Dioxide 21 mmol/L (22-30) L 08/20/19 18:22 Anion Gap 17 mmol/L 08/20/19 18:22 BUN 13 mg/dL (7-17) 08/20/19 18:22 Creatinine 0.9 mg/dL (0.7-1.2) 08/20/19 18:22 Estimated GFR > 60 ml/min 08/20/19 18:22 BUN/Creatinine Ratio 14 % 08/20/19 18:22 Glucose 99 mg/dL (65-100) 08/20/19 18:22 Calcium 9.0 mg/dL (8.4-10.2) 08/20/19 18:22 Total Bilirubin 0.40 mg/dL (0.1-1.2) 08/20/19 18:22 AST 29 units/L (5-40) 08/20/19 18:22 ALT 13 units/L (7-56) 08/20/19 18:22 Alkaline Phosphatase 65 units/L (35-129) 08/20/19 18:22 Total Protein 8.1 g/dL (6.3-8.2) 08/20/19 18:22 Albumin 4.1 g/dL (3.9-5) 08/20/19 18:22 Albumin/Globulin Ratio 1.0 % 08/20/19 18:22 Urine Color Yellow (Yellow) 08/20/19 18:59 Urine Turbidity Clear (Clear) 08/20/19 18:59 Urine pH 6.0 (5.0-7.0) 08/20/19 18:59 Ur Specific [place] 1.014 (1.003-1.030) 08/20/19 18:59 Urine Protein <15 mg/dl mg/dL (Negative) 08/20/19 18:59 Urine Glucose (UA) Neg mg/dL (Negative) 08/20/19 18:59 Urine Ketones Neg mg/dL (Negative) 08/20/19 18:59 Urine Blood Neg (Negative) 08/20/19 18:59 Urine Nitrite Neg (Negative) 08/20/19 18:59 Urine Bilirubin Neg (Negative) 08/20/19 18:59 Urine Urobilinogen < 2.0 mg/dL (<2.0) 08/20/19 18:59 Ur Leukocyte Esterase Neg (Negative) 08/20/19 18:59 Urine WBC (Auto) 2.0 /HPF (0.0-6.0) 08/20/19 18:59 Urine RBC (Auto) 2.0 /HPF (0.0-6.0) 08/20/19 18:59 Ur Transition Epith Cell 1 /HPF 08/20/19 18:59 Amorphous Crystals Few 08/20/19 18:59 Urine Mucus Few /HPF 08/20/19 18:59 Assessment and Plan Assessment and plan: Hyponatremia -Likely secondary to volume depletion -On IV fluid, will monitor sodium level Diarrhea -On PRN Imodium -Patient with intermittent constipation with diarrhea. She would benefit from outpatient GI referral for possible colonoscopy. Intractable nausea and vomiting -On antiemetics Acute abdominal pain -CT abdomen/pelvis showed tiny non-obstructing stone in the right kidney and small bilateral fat-containing inguinal hernias -On PRN narcotics New 3 mm RT pulmonary nodule -Patient falls in the high risk category due to her smoking history, she will need a follow-up CT scan in 12 months CAD -Stable, cont home meds Hypertension, uncontrolled -On anti-hypertensives, monitor BP Psychiatry disorder -We will hold patient's home Lexapro and Depakote due to hyponatremia -cont PRN Xanax Dyslipidemia -cont home meds Insomnia -cont Ambien DVT prophylaxis with Lovenox GI prophylaxis with Pepcid Disposition: Patient will be admitted to inpatient status with plan for discharge when medically stable Time spent: 38 minutes
[2019-08-21] MEDS ORDERED: hydrALAZINE 20 MG/1 ML INJ IV PRN (02:44)
[2019-08-21] MEDS ORDERED: NON-FORMULARY EACH (Alprazolam [Xanax Tab] 2 MG) PO PRN (02:47)
[2019-08-21] MEDS ORDERED: ZOLPIDEM 10 MG TAB PO PRN (02:47)
[2019-08-21] MEDS: SODIUM CHLORIDE 0.9% 1000 ML 1,000 ML IV SCH ×2 (03:27→14:23)
[2019-08-21] MEDS: ALPRAZolam 1 MG TAB PO PRN ×2 (03:40→19:36)
[2019-08-21] MEDS: CLOPIDOGREL 75 MG TAB PO SCH (09:01)
[2019-08-21] MEDS: FAMOTIDINE 20 MG TAB PO SCH (09:01)
[2019-08-21] MEDS: LISINOPRIL 20 MG TAB PO SCH (09:01)
[2019-08-21] MEDS: FENOFIBRATE 145 MG TAB PO SCH (09:02)
[2019-08-21] MEDS: ENOXAPARIN 40 MG/0.4 ML INJ SUB-Q SCH (09:02)
[2019-08-21] MEDS: METOPROLOL TARTRATE 50 MG TAB PO SCH ×2 (09:02→21:44)
[2019-08-21] MEDS: oxyCODONE /ACETAMINOPHEN 5-325MG TAB PO PRN ×3 (09:03→21:43)
[2019-08-21] MEDS ORDERED: ESCITALOPRAM 10 MG TAB PO SCH (10:00)
[2019-08-21] MEDS ORDERED: DIVALPROEX DR 250 MG TAB PO SCH (10:00)
[2019-08-21] MEDS ORDERED: FENOFIBRIC ACID 135 MG PO SCH (10:00)
--- NOTE | 2019-08-21 14:10 | Event Note ---
Date: 08/21/19 Patient seen and examined, remains clinically stable, will recheck sodium level. advised about 3mm pulmonary nodule in the lungs.
[2019-08-21] MEDS ORDERED: PRAVASTATIN 40 MG TAB PO SCH (22:00)
[2019-08-22] MEDS: SODIUM CHLORIDE 0.9% 1000 ML 1,000 ML IV SCH (01:34)
[2019-08-22] MEDS: MORPHINE 2 MG/1 ML INJ IV PRN (01:34)
[2019-08-22] MEDS: oxyCODONE /ACETAMINOPHEN 5-325MG TAB PO PRN (05:35)
[2019-08-22] MEDS: ONDANSETRON 4 MG/2 ML INJ IV PRN ×2 (05:36→09:24)
[2019-08-22 06:46] LABS: BUN/Creatinine Ratio 15; Blood Urea Nitrogen 9 mg/dL (7-17); Calcium 8.5 mg/dL (8.4-10.2); Hemolysis Index 7
[2019-08-22] MEDS: LISINOPRIL 20 MG TAB PO SCH (09:27)
[2019-08-22] MEDS: METOPROLOL TARTRATE 50 MG TAB PO SCH (09:27)
[2019-08-22] MEDS: FAMOTIDINE 20 MG TAB PO SCH (09:27)
[2019-08-22] MEDS: FENOFIBRATE 145 MG TAB PO SCH (09:27)
[2019-08-22] MEDS: ENOXAPARIN 40 MG/0.4 ML INJ SUB-Q SCH (09:27)
[2019-08-22] MEDS: CLOPIDOGREL 75 MG TAB PO SCH (09:27)
[2019-08-22] MEDS: ALPRAZolam 1 MG TAB PO PRN (09:33)
[2019-08-22] MEDS ORDERED: POTASSIUM CHLORIDE ER 20 MEQ TAB PO ONE (12:34)
--- NOTE | 2019-08-22 12:54 | Discharge Summary ---
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 The stool is non-mucoid and nonbloody. She has associated nausea with vomiting times multiple episodes, poor oral intake, low abdominal pain, chills without fever, headaches and lightheadedness. She denies chest pain, shortness of breath, palpitation, cough, syncope or loss of consciousness. Patient reported history of intermittent constipation with diarrhea and was taking laxatives prior to the onset of diarrhea. Hyponatremia -improved with Hydration Diarrhea -On PRN Imodium -Patient with intermittent constipation with diarrhea. She would benefit from outpatient GI referral for possible colonoscopy. THis was discussed in detail with the patient -Counselling ON Laxative use and also pain meds use. Intractable nausea and vomiting -On antiemetics Chronic abdominal pain -CT abdomen/pelvis showed tiny non-obstructing stone in the right kidney and small bilateral fat-containing inguinal hernias -On PRN narcotics -Asking for pain meds -Outpatient surgical eval for possible Inguinal hernia New 3 mm RT pulmonary nodule -Patient falls in the high risk category due to her smoking history, she will need a follow-up CT scan in 12 months, patient advised. CAD -Stable, cont home meds Hypertension, uncontrolled -On anti-hypertensives, monitor BP Psychiatry disorder -We will hold patient's home Lexapro and Depakote due to hyponatremia -cont PRN Xanax Dyslipidemia -cont home meds Insomnia -cont Ambien Disposition: DC-01 TO HOME OR SELFCARE Time spent for discharge: 35 mins Core Measure Documentation - Palliative Care Palliative Care/ Comfort Measures: Not Applicable - Core Measures Any of the following diagnoses?: none Exam - Constitutional Vitals: Temp Pulse Resp BP Pulse Ox 98.5 F 69 18 165/62 99 08/22/19 07:41 08/22/19 07:41 08/22/19 07:41 08/22/19 07:41 08/22/19 07:41 General appearance: Present: no acute distress, well-nourished - EENT Eyes: Present: PERRL, EOM intact ENT: hearing intact, clear oral mucosa, poor dentition - Neck Neck: Present: supple, normal ROM - Respiratory Respiratory effort: normal Respiratory: bilateral: CTA - Cardiovascular Rhythm: regular Heart Sounds: Absent: systolic murmur, diastolic murmur - Extremities Extremities: no ischemia, pulses intact, pulses symmetrical, No edema, normal temperature, normal color, Full ROM Peripheral Pulses: within normal limits - Abdominal General gastrointestinal: Present: soft, non-tender, non-distended, normal bowel sounds - Musculoskeletal Musculoskeletal: strength equal bilaterally - Psychiatric Psychiatric: appropriate mood/affect, intact judgment & insight, memory intact, cooperative - Neurologic Neurologic: CNII-XII intact, moves all extremities, gait normal - Allied Health Allied health notes reviewed: nursing Plan Activity: advance as tolerated, fall precautions Diet: low fat Special Instructions: record daily weights, record daily BP diary, smoking cessation Follow up with: PRIMARY CARE, [Primary Care Provider] - 3-5 Days IRAJ SAGE MD [Staff Physician] - 7 Days DEYSI AVALOS MD [Staff Physician] - 7 Days Prescriptions: traMADol [Ultram 50 MG tab] 50 mg PO Q6HR PRN #14 PRN Reason: Pain Ondansetron [Zofran ODT TAB] 4 mg PO Q6HR PRN #14 tab.rapdis PRN Reason: Nausea
[2019-08-22] MEDS ORDERED: SODIUM CHLORIDE 0.9% 500 ML 500 ML IV ONE (13:00)
[2019-08-22 15:11] VITALS: BP 123/50
== END 2019-08-22 18:12 | disposition home or self-care (01) ==
LOC: ED 16:48 → 2B-ACE 08-21 05:36 → INTOOBSV 08-21 05:36
PROVIDERS: ADMIT Internal Medicine; ATTEND Internal Medicine
DX: E87.1 Hypo-osmolality and hyponatremia (principal); R19.7 Diarrhea, unspecified; R11.2 Nausea with vomiting, unspecified; R10.9 Unspecified abdominal pain; R91.1 Solitary pulmonary nodule; I25.10 Atherosclerotic heart disease of native coronary artery without angina pectoris; I10 Essential (primary) hypertension; E78.5 Hyperlipidemia, unspecified; G47.00 Insomnia, unspecified; F17.210 Nicotine dependence, cigarettes, uncomplicated; Z95.1 Presence of aortocoronary bypass graft
CPT/HCPCS: 36415; 74177; 80048; 80053; 81001; 83735; 84295; 85007; 85025; 87116; 96361; 96372; 96374; 96375; 96376; 97162; 99284; A9270; G0378; J1650; J2270; J2405; J7030; J7040; Q9967

== ENCOUNTER 2020-11-04 18:33 | Emergency (ER) | payer MEDICARE ==
[2020-11-04 21:06] VITALS: BP 142/82
--- NOTE | 2020-11-04 21:08 | Event Note ---
ED Screening Note ED Screening Note: pt presents to ED the with c/o left index finger infection She states that 2 days ago she accidentally cut her finger on a honey jar She states that yesterday she went to [facility] urgent care and was given ceftriaxone IM and started on Bactrim and was advised to be seen in the ER She has swelling present to the left index finger PIP joint with pain with range of motion but is still able to flex This initial assessment/diagnostic orders/clinical plan/treatment(s) is/are subject to change based on patients health status, clinical progression and re- assessment by fellow clinical providers in the ED. Further treatment and workup at subsequent clinical providers discretion. Patient/guardian urged not to elope from the ED as their condition may be serious if not clinically assessed and managed. Initial orders include: XR, labs
[2020-11-04 21:42] LABS: Basophils % (Auto) 0.6 % (0.0-1.8); Eosinophils % (Auto) 0.6 % (0.0-4.3); Hematocrit 42.3 % (30.3-42.9); Hemoglobin 14.7 gm/dl (10.1-14.3); Lymphocytes # (Auto) 1.4 K/mm3 (1.2-5.4); Lymphocytes % (Auto) 27.6 % (13.4-35.0); Mean Corpuscular HGB Conc 35 % (30-34); Mean Corpuscular Volume 87 fl (79-97); Monocytes # (Auto) 0.3 K/mm3 (0.0-0.8); Monocytes % (Auto) 6.1 % (0.0-7.3); Platelet Count 255 K/mm3 (140-440); Red Blood Count 4.88 M/mm3 (3.65-5.03); Red Cell Distribution Width 14.4 % (13.2-15.2)
--- NOTE | 2020-11-04 21:42 | XRay Report ---
LEFT HAND 3 VIEW(S) INDICATION / CLINICAL INFORMATION: left index finger infection COMPARISON: None available. FINDINGS: BONES / JOINT(S): No acute fracture or subluxation. No evidence of cortical destruction. 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 SOFT TISSUES: Mild edema at the distal index finger. ADDITIONAL FINDINGS: None. Signer Name: Juan Conte MD Signed: 11/04/2020 9:37 PM Workstation Name: [id number]
[2020-11-04 22:06] LABS: Alanine Aminotransferase 13 units/L (7-56); BUN/Creatinine Ratio 14; Blood Urea Nitrogen 11 mg/dL (7-17); Calcium 9.8 mg/dL (8.4-10.2); Hemolysis Index 7
--- NOTE | 2020-11-05 02:44 | Emergency Department Report ---
ED Upper Extremity Inj HPI - General Chief Complaint: Extremity Injury, Upper Stated Complaint: FINGER INFECTION Time Seen by Provider: 11/04/20 21:05 Source: patient Mode of arrival: Ambulatory Limitations: No Limitations - History of Present Illness Initial Comments: 70-year-old female on a blood thinner was opening a jar of honey with a knife and while cutting a plastic accidentally grazed her finger lightly with a knife resulting in increased bleeding due to the blood thinner. She applied pressure and went to the urgent care where she was evaluated and antipanic was advised to come to the emergency department to" save her finger"'s. She was she was given an antibiotic shot and and Bactrim although the injury did occur today MD Complaint: Injury to:: left, finger -: Sudden (Was opening a jar of honey and using a knife to cut off the plasticLeg raise test finger and a cutting position causing laceration and bleeding which bled a little bit longer than usual due to her being on a blood thinner. She went to the urgent care to have evaluated and stated that ) Improves With: none Context: injury Associated Symptoms: denies other symptoms - Related Data Home Medications Medication Instructions Recorded Confirmed Last Taken ALPRAZolam [Xanax TAB] 2 mg PO BID PRN 05/02/19 08/21/19 Unknown Clopidogrel [Plavix] 75 mg PO QDAY 05/02/19 08/21/19 Unknown Divalproex [Susan Saldana] 250 mg PO BID 05/02/19 08/21/19 Unknown Escitalopram Oxalate [Lexapro] 10 mg PO QDAY 05/02/19 08/21/19 Unknown Fenofibric Acid (Choline) 135 mg PO QDAY 05/02/19 08/21/19 Unknown [Fenofibric Acid] Metoprolol [Lopressor TAB] 50 mg PO BID 05/02/19 08/21/19 Unknown Turon-3 Acid Ethyl Esters [Triklo] 2 cap PO BID 05/02/19 08/21/19 Unknown Pravastatin [Pravachol] 40 mg PO QHS 05/02/19 08/21/19 Unknown Zolpidem (Nf) [Ambien (Nf)] 10 mg PO QHS PRN 05/02/19 08/21/19 Unknown Previous Rx's Medication Instructions Recorded Last Taken Type lisinopriL [Zestril TAB] 20 mg PO QDAY #30 tablet 05/05/19 Unknown Rx Ondansetron [Zofran ODT TAB] 4 mg PO Q6HR PRN #14 tab.rapdis 08/22/19 Unknown Rx traMADoL [Ultram 50 MG tab] 50 mg PO Q6HR PRN #14 08/22/19 Unknown Rx Chlorhexidine Gluconate [Hibiclens] 10 ml TP BID #240 liquid 11/05/20 Unknown Rx Allergies Allergy/AdvReac Type Severity Reaction Status Date / Time No Known Allergies Allergy Verified 10/20/15 00:26 ED Review of Systems ROS: Stated complaint: FINGER INFECTION Other details as noted in HPI Comment: All other systems reviewed and negative ED Past Medical Hx - Past Medical History Hx Hypertension: Yes Hx Heart Attack/AMI: Yes Hx Psychiatric Treatment: Yes (Depression, Anxiety) Additional medical history: CAD - Surgical History Hx Coronary Stent: Yes - Social History Smoking Status: Former Smoker Substance Use Type: Alcohol - Medications Home Medications: Home Medications Medication Instructions Recorded Confirmed Last Taken Type ALPRAZolam [Xanax TAB] 2 mg PO BID PRN 05/02/19 08/21/19 Unknown History Clopidogrel [Plavix] 75 mg PO QDAY 05/02/19 08/21/19 Unknown History Divalproex [Depmiguel Dr] 250 mg PO BID 05/02/19 08/21/19 Unknown History Escitalopram Oxalate [Lexapro] 10 mg PO QDAY 05/02/19 08/21/19 Unknown History Fenofibric Acid (Choline) 135 mg PO QDAY 05/02/19 08/21/19 Unknown History [Fenofibric Acid] Metoprolol [Lopressor TAB] 50 mg PO BID 05/02/19 08/21/19 Unknown History Turon-3 Acid Ethyl Esters [Triklo] 2 cap PO BID 05/02/19 08/21/19 Unknown History Pravastatin [Pravachol] 40 mg PO QHS 05/02/19 08/21/19 Unknown History Zolpidem (Nf) [Ambien (Nf)] 10 mg PO QHS PRN 05/02/19 08/21/19 Unknown History lisinopriL [Zestril TAB] 20 mg PO QDAY #30 tablet 05/05/19 08/21/19 Unknown Rx Ondansetron [Zofran ODT TAB] 4 mg PO Q6HR PRN #14 tab.rapdis 08/22/19 Unknown Rx traMADoL [Ultram 50 MG tab] 50 mg PO Q6HR PRN #14 08/22/19 Unknown Rx Chlorhexidine Gluconate [Hibiclens] 10 ml TP BID #240 liquid 11/05/20 Unknown Rx ED Physical Exam - General Limitations: No Limitations General appearance: alert, in no apparent distress - Head Head exam: Present: atraumatic, normocephalic - Eye Eye exam: Present: normal appearance, PERRL, EOMI Pupils: Present: normal accommodation - ENT ENT exam: Present: normal exam, mucous membranes moist, TM's normal bilaterally - Neck Neck exam: Present: normal inspection, full ROM - Respiratory Respiratory exam: Present: normal lung sounds bilaterally. Absent: respiratory distress - Cardiovascular Cardiovascular Exam: Present: regular rate, normal rhythm. Absent: systolic murmur, diastolic murmur, rubs, gallop - GI/Abdominal GI/Abdominal exam: Present: soft, normal bowel sounds - Extremities Exam Extremities exam: Present: normal inspection - Back Exam Back exam: Present: normal inspection - Neurological Exam Neurological exam: Present: alert, oriented X3 - Psychiatric Psychiatric exam: Present: normal affect, normal mood - Skin Skin exam: Present: warm, dry, intact, normal color. Absent: rash ED Course Vital Signs 11/04/20 19:29 Temperature 97.3 F L Pulse Rate 106 H Respiratory 18 Rate Blood Pressure 142/82 O2 Sat by Pulse 99 Oximetry ED Medical Decision Making - Lab Data Result diagrams: 11/04/20 21:11 11/04/20 21:11 Critical care attestation.: If time is entered above; I have spent that time in minutes in the direct care of this critically ill patient, excluding procedure time. ED Disposition Clinical Impression: Laceration of finger Disposition: DC-01 TO HOME OR SELFCARE Is pt being admited?: No Does the pt Need Aspirin: No Condition: Stable Instructions: Laceration Care, Adult, Wound Care, Adult Additional Instructions: Laceration was superficial with no discharge no sutures were needed please keep wound clean with antibacterial soap and water and can ice as needed. You may continue anabolic steroid start follow-up with your primary care for reevaluation of your wound Prescriptions: Chlorhexidine Gluconate [Hibiclens] 10 ml TP BID #240 liquid Referrals: OSBALDO POLANCO MD [Primary Care Provider] - 3-5 Days
== END 2020-11-05 03:00 | disposition home or self-care (01) ==
LOC: ED 18:33
DX: S61.218A Laceration without foreign body of other finger without damage to nail, initial encounter (principal); I10 Essential (primary) hypertension; F32.89 Other specified depressive episodes; F41.9 Anxiety disorder, unspecified; I25.2 Old myocardial infarction; Z79.899 Other long term (current) drug therapy; X58.XXXA Exposure to other specified factors, initial encounter; Y93.89 Activity, other specified; Y92.89 Other specified places as the place of occurrence of the external cause; Y99.8 Other external cause status
CPT/HCPCS: 36415; 80053; 82140; 85025; 86140

== ENCOUNTER 2021-09-15 07:26 | Emergency (ER) | payer MEDICARE ==
[2021-09-15 07:42] VITALS: BP 140/74
[2021-09-15] MEDS ORDERED: SODIUM CHLORIDE 0.9% 1000 ML 1,000 ML IV ONE (07:58)
[2021-09-15] MEDS ORDERED: ONDANSETRON 4 MG/2 ML INJ IV ONE (07:58)
--- NOTE | 2021-09-15 08:01 | Emergency Department Report ---
ED General Adult HPI - General Chief complaint: Nausea/Vomiting/Diarrhea Stated complaint: PAC DIARRHEA, CRAMPING Time Seen by Provider: 09/15/21 07:48 Source: patient Mode of arrival: Ambulatory Limitations: No Limitations - History of Present Illness Initial comments: Patient is 71 years old female with history of coronary artery disease, diabetes and frequent history of hyponatremia secondary to vomiting and diarrhea according to the patient report. Patient presented to the ER complaining of 3- day history of nausea, vomiting and watery diarrhea. Patient stated that she had some abdominal cramping but it went away. Patient denied any fever or chills. No chest pain or shortness of breath. - Related Data Home Medications Medication Instructions Recorded Confirmed Last Taken ALPRAZolam [Xanax TAB] 2 mg PO BID PRN 05/02/19 08/21/19 Unknown Clopidogrel [Plavix] 75 mg PO QDAY 05/02/19 08/21/[address] [Depakote Dr] 250 mg PO BID 05/02/19 08/21/19 Unknown Escitalopram Oxalate [Lexapro] 10 mg PO QDAY 05/02/19 08/21/19 Unknown Fenofibric Acid (Choline) 135 mg PO QDAY 05/02/19 08/21/19 Unknown [Fenofibric Acid] Metoprolol [Lopressor TAB] 50 mg PO BID 05/02/19 08/21/19 Unknown [place]-3 Acid Ethyl Esters [Triklo] 2 cap PO BID 05/02/19 08/21/19 Unknown Pravastatin [Pravachol] 40 mg PO QHS 05/02/19 08/21/19 Unknown Zolpidem (Nf) [Ambien (Nf)] 10 mg PO QHS PRN 05/02/19 08/21/19 Unknown Previous Rx's Medication Instructions Recorded Last Taken Type lisinopriL [Zestril TAB] 20 mg PO QDAY #30 tablet 05/05/19 Unknown Rx Ondansetron [Zofran ODT TAB] 4 mg PO Q6HR PRN #14 tab.rapdis 08/22/19 Unknown Rx traMADoL [Ultram 50 MG tab] 50 mg PO Q6HR PRN #14 08/22/19 Unknown Rx Chlorhexidine Gluconate [Hibiclens] 10 ml TP BID #240 liquid 11/05/20 Unknown Rx traMADoL [Ultram] 50 mg PO Q6HR PRN #10 tablet 11/05/20 Unknown Rx Allergies Allergy/AdvReac Type Severity Reaction Status Date / Time No Known Allergies Allergy Verified 09/15/21 07:36 ED Review of Systems ROS: Stated complaint: PAC DIARRHEA, CRAMPING Other details as noted in HPI Comment: All other systems reviewed and negative Constitutional: denies: chills, fever Respiratory: denies: cough, shortness of breath, SOB with exertion Cardiovascular: denies: chest pain Gastrointestinal: nausea, vomiting, diarrhea. denies: abdominal pain, hematemesis, melena, hematochezia Genitourinary: denies: urgency Neurological: denies: headache, weakness, numbness, paresthesias, confusion ED Past Medical Hx - Past Medical History Hx Hypertension: Yes Hx Heart Attack/AMI: Yes Hx Psychiatric Treatment: Yes (Depression, Anxiety) Additional medical history: CAD - Surgical History Hx Coronary Stent: Yes - Social History Smoking Status: Former Smoker Substance Use Type: Alcohol - Medications Home Medications: Home Medications Medication Instructions Recorded Confirmed Last Taken Type ALPRAZolam [Xanax TAB] 2 mg PO BID PRN 05/02/19 08/21/19 Unknown History Clopidogrel [Plavix] 75 mg PO QDAY 05/02/19 08/21/19 Unknown History Divalproex [Susan Saldana] 250 mg PO BID 05/02/19 08/21/19 Unknown History Escitalopram Oxalate [Lexapro] 10 mg PO QDAY 05/02/19 08/21/19 Unknown History Fenofibric Acid (Choline) 135 mg PO QDAY 05/02/19 08/21/19 Unknown History [Fenofibric Acid] Metoprolol [Lopressor TAB] 50 mg PO BID 05/02/19 08/21/19 Unknown History [place]-3 Acid Ethyl Esters [Triklo] 2 cap PO BID 05/02/19 08/21/19 Unknown History Pravastatin [Pravachol] 40 mg PO QHS 05/02/19 08/21/19 Unknown History Zolpidem (Nf) [Ambien (Nf)] 10 mg PO QHS PRN 05/02/19 08/21/19 Unknown History lisinopriL [Zestril TAB] 20 mg PO QDAY #30 tablet 05/05/19 08/21/19 Unknown Rx Ondansetron [Zofran ODT TAB] 4 mg PO Q6HR PRN #14 tab.rapdis 08/22/19 Unknown Rx traMADoL [Ultram 50 MG tab] 50 mg PO Q6HR PRN #14 08/22/19 Unknown Rx Chlorhexidine Gluconate [Hibiclens] 10 ml TP BID #240 liquid 11/05/20 Unknown Rx traMADoL [Ultram] 50 mg PO Q6HR PRN #10 tablet 11/05/20 Unknown Rx ED Physical Exam - General Limitations: No Limitations General appearance: alert, in no apparent distress - ENT ENT exam: Present: mucous membranes dry - Neck Neck exam: Present: normal inspection, full ROM. Absent: tenderness, meningismus - Respiratory Respiratory exam: Present: normal lung sounds bilaterally - Cardiovascular Cardiovascular Exam: Present: regular rate, normal rhythm, normal heart sounds - GI/Abdominal GI/Abdominal exam: Present: soft, normal bowel sounds. Absent: distended, tenderness, guarding, rebound, rigid, organomegaly, mass, bruit, pulsatile mass, hernia - Extremities Exam Extremities exam: Present: normal inspection, full ROM, normal capillary refill. Absent: tenderness - Back Exam Back exam: Present: normal inspection, full ROM. Absent: CVA tenderness (R), CVA tenderness (L) - Neurological Exam Neurological exam: Present: alert, oriented X3, CN II-XII intact - Psychiatric Psychiatric exam: Present: normal mood - Skin Skin exam: Present: warm, dry, intact, normal color ED Course Vital Signs 09/15/21 07:41 Temperature 97.7 F Pulse Rate 57 L Respiratory 16 Rate Blood Pressure 140/74 [Left] O2 Sat by Pulse 100 Oximetry ED Medical Decision Making - Lab Data Result diagrams: 09/15/21 08:08 09/15/21 08:08 - Medical Decision Making Patient is 71 years old female with history of coronary artery disease, diabetes and frequent history of hyponatremia secondary to vomiting and diarrhea according to the patient report. Patient presented to the ER complaining of 3- day history of nausea, vomiting and watery diarrhea. Patient stated that she had some abdominal cramping but it went away. Patient denied any fever or chills. No chest pain or shortness of breath. Patient remained stable in the ER with a stable vital sign. Labs reviewed and showed a sodium of 130. Patient received normal saline 1 L. Patient advised to increase her salt intake and advised to follow-up with her primary care physician in the next 2 to 3 days and to return to the ER if she develop any new symptoms. Critical care attestation.: If time is entered above; I have spent that time in minutes in the direct care of this critically ill patient, excluding procedure time. ED Disposition Clinical Impression: Diarrhea, Acute nausea with nonbilious vomiting Disposition: HOME / SELF CARE / HOMELESS Is pt being admited?: No Condition: Stable Instructions: Nausea and Vomiting, Adult Referrals: [facility] [Other] - 3-5 Days
[2021-09-15 08:26] LABS: Hematocrit 40.7 % (30.3-42.9); Hemoglobin 13.8 gm/dl (10.1-14.3); Mean Corpuscular HGB Conc 34 % (30-34); Mean Corpuscular Volume 85 fl (79-97); Platelet Count 220 K/mm3 (140-440); Red Blood Count 4.79 M/mm3 (3.65-5.03)
[2021-09-15 08:45] LABS: Bilirubin,Urine NEG (Negative); Blood,Urine NEG (Negative); Color,Urine Yellow (Yellow); Protein,Urine <15 mg/dL mg/dL (Negative)
[2021-09-15 08:54] LABS: Alanine Aminotransferase 11 units/L (7-56); Albumin 3.8 g/dL (3.9-5); BUN/Creatinine Ratio 19; Blood Urea Nitrogen 15 mg/dL (7-17); Hemolysis Index 26
[2021-09-15 08:55] LABS: Bilirubin,Direct < 0.2 mg/dL (0-0.2)
[2021-09-15 09:33] LABS: Large Platelets Few; Platelet Estimate Consistent w Auto; RBC Morphology Normal; Total Cells Counted 100
--- NOTE | 2021-09-16 17:34 | Electrocardiograph Report ---
[facility] Test Date: 2021-09-15 Test Time: 07:35:23 Pat Name: LYNDON DAWSON Department: Room: Gender: F [employer]: TV : 1950 Requested By: JORJE PORTILLO Order Number: [id number] Reading MD: Jaime Navarro Measurements Intervals [place] Rate: 60 P: 74 OK: 163 QRS: 22 QRSD: 127 T: 151 QT: 430 QTc: 429 Interpretive Statements Sinus rhythm Probable left atrial enlargement LVH with secondary repolarization abnormality Inferior infarct, old No previous ECG available for comparison Electronically Signed On 09-16-2021 17:33:52 EDT by Jaime Navarro
== END 2021-09-15 10:40 | disposition home or self-care (01) ==
LOC: ED 07:26
DX: R19.7 Diarrhea, unspecified (principal); R11.2 Nausea with vomiting, unspecified; I10 Essential (primary) hypertension; F32.9 Major depressive disorder, single episode, unspecified; F41.9 Anxiety disorder, unspecified; Z87.891 Personal history of nicotine dependence; Z72.89 Other problems related to lifestyle
CPT/HCPCS: 36415; 80048; 80076; 81001; 83690; 85007; 85025; 93005; 96361; 96374; 99283; J2405; J7030

== ENCOUNTER 2021-11-25 08:35 | Emergency (ER) | payer MEDICARE ==
[2021-11-25 10:00] VITALS: BP 129/69
== END 2021-11-25 11:00 | disposition left against medical advice (07) ==
LOC: ED 08:35
DX: R05.9 Cough, unspecified (principal); Z53.21 Procedure and treatment not carried out due to patient leaving prior to being seen by health care provider